=== PATIENT | female | born 1950 | race Caucasian/White ===

== ENCOUNTER 2017-01-08 14:39 | Inpatient (IN) | payer MEDICARE, OTHER ==
[~2017-01-08] VITALS: Ht 162.6 cm; Wt 95.3 kg
--- NOTE | 2017-01-08 14:45 | NUR ---
PATIENT BIB EMT FROM [facility] D/T ABDOMINAL PAIN AND DISTENTION. PATIENT IS A/OX 2, BREATHING EVEN AND UNLABORED. NO DISTRESS. VITALS STABLE. SAFETY AND COMFORT MEASURES IN PLACE. AWAITING MD ORDERS.
[2017-01-08] MEDS ORDERED: CITA20TA11 PO (14:56)
[2017-01-08] MEDS ORDERED: MAGN400O6 PO (14:56)
[2017-01-08] MEDS ORDERED: NA P133E RC (14:56)
[2017-01-08] MEDS ORDERED: BISA10SU8 RC (14:56)
[2017-01-08] MEDS ORDERED: TRAZ-144 PO (14:56)
[2017-01-08] MEDS ORDERED: ACET-868 PO (14:56)
[2017-01-08] MEDS ORDERED: THIA100T13 PO (14:56)
[2017-01-08] MEDS ORDERED: HYDR-3026 PO (14:56)
[2017-01-08] MEDS ORDERED: LACT10SO7 PO (14:56)
[2017-01-08] MEDS ORDERED: HYDR-552 PO (14:56)
[2017-01-08] MEDS ORDERED: SIME80TA15 PO (14:56)
[2017-01-08] MEDS ORDERED: NYST60PO TP (14:58)
[2017-01-08] MEDS ORDERED: MORPHINE SULFATE INJ 4 MG/ML DISP.SYRIN ONE (15:09)
[2017-01-08] MEDS ORDERED: ONDANSETRON HCL/PF 4 MG/2 ML VIAL ONE (15:09)
--- NOTE | 2017-01-08 15:25 | NUR ---
NEW IV STARTED ON LFA, 20 G. BLOOD DRAWN AND SENT TO LAB.
[2017-01-08] MEDS ORDERED: ONDANSETRON HCL/PF 4 MG/2 ML VIAL IVP ONE (15:30)
[2017-01-08] MEDS ORDERED: IV NS 0.9% 500 ML BAG IV ONE (15:30)
[2017-01-08] MEDS ORDERED: MORPHINE SULFATE INJ 2 MG/ML DISP.SYRIN IV ONE (15:30)
[2017-01-08 15:32] LABS: BASOPHILS % (AUTO) 3.5 % (0.0-2.0); EOSINOPHILS # (AUTO) 0.3 /CMM (0.0-0.7); EOSINOPHILS % (AUTO) 1.2 % (0.0-6.0); HEMATOCRIT 40 % (33-45); HEMOGLOBIN 13.6 g/dL (11.5-14.8); LYMPHOCYTES # (AUTO) 1.2 /CMM (0.8-4.8); LYMPHOCYTES % (AUTO) 4.4 % (20.0-44.0); MEAN CORPUSCULAR HEMOGLOBIN 34 PG (26.0-33.0); MEAN CORPUSCULAR HGB CONC 34 g/dl (31.0-36.0); MEAN CORPUSCULAR VOLUME 101 fL (82-100); MONOCYTES # (AUTO) 1.2 /CMM (0.1-1.30); MONOCYTES % (AUTO) 4.5 % (2.0-12.0); NEUTROPHILS % (AUTO) 86.4 % (43.0-81.0); PLATELET COUNT (AUTO) 295 /CMM (150-450); RDW COEFFICIENT OF VARIATION 15.1 (11.5-15.0); WHITE BLOOD COUNT (AUTO) 27.7 K/uL (4.3-11.0)
--- NOTE | 2017-01-08 15:35 | NUR ---
PATIENT TAKEN TO CT VIA STRETCHER.
[2017-01-08 15:40] LABS: CALCIUM, SERUM 8.6 mg/dL (8.5-10.1); CARBON DIOXIDE 22 mmol/L (21-32); CHLORIDE 93 mmol/L (98-107); CREATININE 1.4 mg/dL (0.6-1.3); GLUCOSE 105 mg/dL (74-106); POTASSIUM 5.3 mmol/L (3.5-5.1); SODIUM SERUM 123 mmol/L (136-145); UREA NITROGEN, BLOOD 45 mg/dL (7-18)
[2017-01-08 15:42] LABS: INR 1.49 (0.87-1.13); PROTHROMBIN TIME 15.8 SECS (9.5-12.7)
[2017-01-08 15:45] LABS: ALANINE AMINOTRANSFERASE 32 U/L (12-78); ALBUMIN 2.2 g/dL (3.4-5.0); ALKALINE PHOSPHATASE 501 U/L (46-116); ASPARTATE AMINOTRANSFERASE 78 U/L (15-37); BILIRUBIN,DIRECT 1.9 mg/dL (0.0-0.2); LIPASE 133 U/L (73-393); TOTAL PROTEIN, SERUM 6.6 g/dL (6.4-8.2)
--- NOTE | 2017-01-08 15:45 | NUR ---
PATIENT BACK FROM CT.
--- NOTE | 2017-01-08 15:54 | NUR ---
URINE OBTAINED CALLED LAB FOR PICKUP
[2017-01-08 15:56] LABS: BAND % (MANUAL) 2 % (0.0-5.0); LYMPHOCYTES % (MANUAL) 8 % (16-48); MONOCYTES % (MANUAL) 9 % (0-11.0); NEUTROPHILS % (MANUAL) 81 (42-76)
[2017-01-08 16:00] LABS: SERUM AMMONIA < 10 umol/L (11-32)
[2017-01-08 16:04] LABS: APPEARANCE,URINE Clear (CLEAR); BILIRUBIN,URINE SMALL (NEGATIVE); BLOOD, URINE Negative Ery/uL (NEGATIVE); COLOR,URINE Dark (YELLOW); KETONES,URINE Negative (NEGATIVE); LEUKOCYTE ESTERASE ,URINE Negative (NEGATIVE); NITRITE, URINE Negative (NEGATIVE); PH,URINE 5.5 (5.0-8.0); PROTEIN,URINE Trace mg/dl (NEGATIVE); UGLUCOSE Negative (NEGATIVE); UROBILINOGEN,URINE 0.2 EU/dL (0.2)
[2017-01-08] MEDS ORDERED: CEFTRIAXONE 1GM BAG (ER ONLY) 50 ML IV ONE ×2 (16:28→16:30)
[2017-01-08 16:42] LABS: BACTERIA,URINE Moderate /HPF (None Seen); RBC,URINE 0-2 /HPF (0-2); SQUAMOUS EPITHELIAL CELL,UR Few /HPF (None Seen); WBC,URINE 0-2 /HPF (0-3)
--- NOTE | 2017-01-08 17:05 | NUR ---
REPORT GIVEN TO JOCELYN DORAN FOR ADMISSION.
--- NOTE | 2017-01-08 17:25 | NUR ---
PAGED DR MENDOZA FOR ADMISSION
[2017-01-08] MEDS ORDERED: ALBUMIN 25% 12.5 GM/50 ML BOTTLE IV ONE (17:30)
[2017-01-08] MEDS ORDERED: ALBUMIN 25% 100 ML IV ONE ×2 (17:34→22:22)
--- NOTE | 2017-01-08 17:43 | NUR ---
REPAGED DR MENDOZA
--- NOTE | 2017-01-08 18:05 | NUR ---
US TECH AT BEDSIDE FOR PARACENTESIS.
--- NOTE | 2017-01-08 18:08 | NUR ---
PARACENTESIS PROCEDURE EXPLAINED TO PATIENT. PATIENT HAS AGREED TO PROCEDURE. CONSENT RECEIVED FOR ULTRASOUND GUIDED PARACENTESIS AND PLACED IN CHART.
--- NOTE | 2017-01-08 18:20 | NUR ---
RADIOLOGIST AT BEDSIDE, PARACENTESIS STARTED.
--- NOTE | 2017-01-08 18:27 | NUR ---
REPAGED DR MENDOZA
--- NOTE | 2017-01-08 18:48 | NUR ---
REPAGED DR MENDOZA
[2017-01-08] MEDS ORDERED: MORPHINE SULFATE INJ 2 MG/ML DISP.SYRIN ONE (19:13)
[2017-01-08] MEDS ORDERED: MORPHINE SULFATE INJ 2 MG/ML DISP.SYRIN IV PRN (19:30)
--- NOTE | 2017-01-08 19:36 | NUR ---
RECIEVED REPORT FROM DAYSNVFT ESPINOZA BUSTAMANTE. FOUND Pt AWAKE IN BED. CURRENTLY GETTING PARACENTESIS. REPORT ALREADY GIVEN TO NOAH RN FOR ADMISSION ONCE PARACENTESIS IS DONE IN ER. NO S/S OF ACUTE DISTRESS OR SOB NOTED.
--- NOTE | 2017-01-08 19:36 | NUR ---
RECIEVED REPORT FROM DAYSSCFT ESPINOZA BUSTAMANTE. FOUND Pt AWAKE IN BED. CURRENTLY GETTING PARACENTESIS. REPORT ALREADY GIVEN TO NOAH RN FOR ADMISSION ONCE PARACENTESIS IS DONE IN ER. NO S/S OF ACUTE DISTRESS OR SOB NOTED.
--- NOTE | 2017-01-08 19:40 | NUR ---
PARACENTESIS DONE. 10 BOTTLES TOTAL COLLETED. LATEST VS: BP 108/71. HR 88. R 18. T 98.5F. O2 95% ON NC 5L. NO S/S OF ACUTE DISTRESS OR SEVERE SOB NOTED. Pt TRANSFERED TO NOAH FLOOR.
--- NOTE | 2017-01-08 19:50 | NUR ---
[facility]
--- NOTE | 2017-01-08 19:50 | NUR ---
RN NOTES: RECEIVED NEW ADMISSION FROM ER,FEMALE,A/OX2 DEMENTED,LOOKS VERY SLEEPY AND UNABLE TO OBTAIN HISTORY,CAME IN WITH C/C OF ABDOMINAL PAIN AND DISTENTION,DX;SEPSIS, ON 02 VIA NC sPO2-96%, ON POWERS CATH DRAINING INTO YELLOWISH URINE AT 300 CC LEVEL,ORIENTED TO UNIT AND STAFF, BODY ASSESSMENT DONE:NEEDLE PRICK IN RLQ S/P PARACENTESIS ,OBTAINED 9,900CC(CLEAR YELLOW FLUID), REDNESS ON RIGHT AND LEFT INGUINAL AREA,NON BLANCHABLE REDNESS ON THE SACROCOCCYX AREA,RECEIVED N/S, MORPHINE,ZOFRAN AND ROCEPHINE 1 GRAM FROM ER.FALL, SAFETY AND ASPIRATION PRECAUTION OBSERVED.BED LOW AND LOCKED,CALL LIGHT WITHIN EASY REACH.
[2017-01-08 20:00] VITALS: BP 104/63
[2017-01-08] MEDS ORDERED: ALBUMIN 25% 50 ML IV ONE ×2 (22:26→22:29)
--- NOTE | 2017-01-08 22:30 | NUR ---
RN NOTES: CALLED, GAVE T.O TO CONTINUE SAME MEDICATION FROM HOME,NOTIFIED ABOUT LATEST V/S AND BLOOD RESULTS,WITH ORDER TO DO BLOOD TEST TOMORROW,CONTINUE ROCEPHINE,ALBUMIN 25% 100 CC Q8H X 3 DOSES, GIVEN [id number].WILL CONTINUE TO MONITOR AND OBSERVE FOR GISEL.CALL LIGHT WITHIN EASY REACH.
[2017-01-08] MEDS: ALBUMIN 25% 25 GM in PREMIX 1 EA IV SCH (22:36)
[2017-01-09 04:00] VITALS: BP 98/60
--- NOTE | 2017-01-09 04:33 | NUR ---
RN NOTES; ASLEEP IN THE NIGHT, ON CLOSE OBSERVATION.
[2017-01-09] MEDS: ALBUMIN 25% 25 GM in PREMIX 1 EA IV SCH (05:02)
--- NOTE | 2017-01-09 05:44 | NUR ---
RN NOTES: COMPLAINED OF SEVERE ABDOMINA PAIN 9/10 ON THE BADOMEN AREA, REQUEST FOR HER PAIN MEDICATION BP-105/60 VA-80, KEPT ON COMFORTABLE POSITION, CALLS AND NEEDS ATTENDED.
--- NOTE | 2017-01-09 07:42 | NUR ---
RN NOTES: PATIENT IS STILL HAVING SLIGHT PAIN, NON PHARMACOLOGICAL INTERVENTION RENDERED,DIVERTED TO WATCH TV, DIM LIGHT AND BACK RUB RENDERED,KEPT ON CLOSE WATCH,CALL LIGHT WITHIN EASY REACH.ENDORSED FOR CONTINUITY OF CARE.
[2017-01-09 07:53] LABS: BASOPHILS # (AUTO) 0.2 /CMM (0.0-0.2); EOSINOPHILS # (AUTO) 0.9 /CMM (0.0-0.7); EOSINOPHILS % (AUTO) 4.5 % (0.0-6.0); HEMATOCRIT 31 % (33-45); HEMOGLOBIN 10.5 g/dL (11.5-14.8); LYMPHOCYTES # (AUTO) 1.5 /CMM (0.8-4.8); LYMPHOCYTES % (AUTO) 7.6 % (20.0-44.0); MEAN CORPUSCULAR HEMOGLOBIN 35 PG (26.0-33.0); MEAN CORPUSCULAR HGB CONC 34 g/dl (31.0-36.0); MEAN CORPUSCULAR VOLUME 103 fL (82-100); MONOCYTES # (AUTO) 1.2 /CMM (0.1-1.30); MONOCYTES % (AUTO) 6.3 % (2.0-12.0); NEUTROPHILS # (AUTO) 15.6 /CMM (1.8-8.9); NEUTROPHILS % (AUTO) 80.6 % (43.0-81.0); PLATELET COUNT (AUTO) 164 /CMM (150-450); RDW COEFFICIENT OF VARIATION 16.1 (11.5-15.0); RED BLOOD CELL COUNT(AUTO) 3.01 MIL/uL (4.0-5.2); WHITE BLOOD COUNT (AUTO) 19.4 K/uL (4.3-11.0)
--- NOTE | 2017-01-09 08:00 | NUR ---
RN MS NOTES: RECEIVED PATIENT IN BED . AWAKE ALERT WITH CONFUSION , ON 02 VIA 3L NC sPO2-94%, NO SOB NOTED ON POWERS CATH DRAINING INTO YELLOWISH COLOR URINE, , ON SAFETY AND ASPIRATION PRECAUTION OBSERVED.BED LOW AND LOCKED,CALL LIGHT WITHIN EASY REACH., TOOK PO MEDS WELL , CALL LIGHT WITHIN REACH , WILL CONT TO MONITOR CLOSELY
[2017-01-09 08:04] LABS: CALCIUM, SERUM 8.1 mg/dL (8.5-10.1); CREATININE 1.1 mg/dL (0.6-1.3); MAGNESIUM 2.2 mg/dL (1.8-2.4); PHOSPHORUS 4.1 mg/dL (2.5-4.9)
[2017-01-09 09:00] VITALS: BP 98/57
[2017-01-09] MEDS ORDERED: SIMETHICONE 80 MG TAB.CHEW PO PRN (09:00)
[2017-01-09] MEDS ORDERED: BISACODYL SUPP (10 MG) 10 MG/SUPP.RECT SUPP.RECT RC PRN (09:00)
[2017-01-09] MEDS ORDERED: MAGNESIUM HYDROXIDE 30 ML UDC PO PRN (09:00)
[2017-01-09] MEDS ORDERED: TRAZODONE 50 MG TABLET PO PRN (09:00)
[2017-01-09] MEDS ORDERED: NA PHOS,M-B/NA PHOS,DI-BA 1 EA ENEMA RC PRN (09:00)
[2017-01-09] MEDS ORDERED: ACETAMINOPHEN 325 MG TABLET PO PRN (09:00)
[2017-01-09] MEDS: CITALOPRAM HYDROBROMIDE 20 MG TABLET PO SCH (09:11)
[2017-01-09] MEDS: THIAMINE HCL 100 MG TABLET PO SCH (09:11)
[2017-01-09] MEDS ORDERED: hydrOXYzine PAMOATE 25 MG CAPSULE PO PRN (09:30)
[2017-01-09] MEDS ORDERED: LACTULOSE 10 G/15 ML UDC (PYXIS) PO PRN (09:30)
[2017-01-09 09:33] LABS: EOSINOPHILS % (MANUAL) 5 % (0-4); LYMPHOCYTES % (MANUAL) 1 % (16-48); MONOCYTES % (MANUAL) 6 % (0-11.0); NEUTROPHILS % (MANUAL) 88 (42-76)
--- NOTE | 2017-01-09 10:36 | NUR ---
ms rn note spoke with dr romero notifyed that na 127, k 5.0 ok to start puree diet , no anticoagulates at this time , will f\u
[2017-01-09] MEDS: NYSTATIN TOP POWDER 15 GM BOTTLE TP SCH (10:49)
[2017-01-09 11:44] LABS: CREATININE, URINE 97.8 MG/DL (30.0-125.0); URINE TOTAL PROTEIN 83.1 mg/dL (0-11.9)
--- NOTE | 2017-01-09 12:36 | NUR ---
MS RN NOTE AT RISK FOR ASPIRATION, DR SANTILLAN AWARE OK TO ORDER SWALLOW EVAL , ORDER CARRIED OUT
[2017-01-09] MEDS ORDERED: ALBUMIN 25% 25 GM in PREMIX 1 EA IV SCH (13:00)
--- NOTE | 2017-01-09 15:00 | NUR ---
TECHNICIAN AUTOMATED EQUIPMENT NOTE ALL NEEDS ATTENDED ,NOT IN ACUTE DISTRESS
[2017-01-09 16:00] VITALS: BP 97/61
[2017-01-09] MEDS: CEFTRIAXONE 1 G in IV D5W 50 ML IV SCH (16:27)
--- NOTE | 2017-01-09 18:13 | NUR ---
MS RN NOTE HAVING DINNER , FED BY STUFF , ALL NEEDS ATTENDED ,NOT IN ACUTE DISTRESS, CALL LIGHT WITH REACH
--- NOTE | 2017-01-09 19:26 | NUR ---
RN NOTES AWAKE IN BED, ALERT AND RESPONSIVE WITH EPISODE OF CONFUSION, VERBALLY ABLE TO COMMUNICATE NEEDS. ON 02 @3L TOLERATING WELL. NO RESPIRATORY DISTRESS OR SHORTNESS OF BREATH. BREATHING EVEN AND UNLABORED. NO COMPLAINT OF PAIN OF THIS TIME. POWERS CATHETER IN PLACE DRAINING CLEAR YELLOW WITH NO FOUL ODOR URINE. WILL CONTINUE TO MONITOR.
[2017-01-09 20:00] VITALS: BP 94/46
[2017-01-10 04:00] VITALS: BP 93/58
--- NOTE | 2017-01-10 06:55 | NUR ---
RN CLOSING NOTES AWAKE, ALERT AND ORIENTED X 2 WITH EPISODES OF CONFUSION. NO DISTRESS NOTED, NO COMPLAINT OF PAIN OR DISCOMFORT. VITAL SIGNS WNL. WILL ENDORSE TO AM SHIFT FOR CONTINUITY OF CARE
[2017-01-10] MEDS: CITALOPRAM HYDROBROMIDE 20 MG TABLET PO SCH (09:09)
[2017-01-10] MEDS: THIAMINE HCL 100 MG TABLET PO SCH (09:09)
[2017-01-10] MEDS: NYSTATIN TOP POWDER 15 GM BOTTLE TP SCH (09:13)
[2017-01-10 10:00] VITALS: BP 138/70
[2017-01-10 12:00] VITALS: BP 138/70
--- NOTE | 2017-01-10 13:59 | NUR ---
WOUND CARE CONSULT PATIENT SEEN AND SKIN ASSESSED. PATIENT NOTED TO HAVE AN AREA OF NON BLANCHING REDNESS ON THE SACRUM, POA. OF NOW THE KIN IS INTACT. RECOMMEND APPLY ZGUARD DAILY AND PRN SOILING AND COVER WITH MEPILEX TO PROTECT. REDNESS ON PERINEAL AREA POA, CLEANSE WITH SOAP AND WATER, PAT DRY, APPLY ZGUARD DAILY AND PRN SOILING. PATIENT IS CURRENTLY ON A STRIKER GEL MATTRESS, RECOMMEND ISOFLEX LOW AIR LOSS AND FREQUENT TURNING SCHEDULE. ASKED RN, BESSIE, TO PLACE A WOUND CARE PLAN FOR THE PATIENT. ALL ORDERS AND RECOMMENDATIONS PLACED IN CHART AND DISCUSSED WITH NURSING AT THE BEDSIDE. WILL CONTINUE TO FOLLOW PATIENT NEEDED. Addendum: 01/10/17 at 1403 by IVÁN ARANDA RN Amended: Links added.
[2017-01-10] MEDS: Z GUARD REMEDY 2 OZ OINT TP SCH (14:33)
[2017-01-10] MEDS: CEFTRIAXONE 1 G in IV D5W 50 ML IV SCH (16:16)
[2017-01-10 20:00] VITALS: BP 91/53
--- NOTE | 2017-01-10 20:00 | NUR ---
RN NOTES RECEIVED PATIENT AWAKE IN BED, COMPLAINED OF ABDOMINAL PAIN, NORCO 5/325 1 TABLET GIVEN, WITH RELIEF. NO RESPIRATORY DISTRESS, ON 3 LPM 02 VIA NASAL CANNULA TOLERATING WELL. ALERT AND RESPONSIVE WITH CONFUSION. FC IN PLACE DRAINING CLEAR YELLOW WITH NO FOUL ODOR URINE. WILL CONTINUE TO MONITOR.
[2017-01-10] MEDS: HYDROCODONE/APAP 5/325MG 1 EACH TABLET PO PRN (20:40)
[2017-01-11 04:00] VITALS: BP 98/61
--- NOTE | 2017-01-11 06:49 | NUR ---
RN CLOSING NOTES COMFORTABLY SLEEPING IN BED. NO RESPIRATORY DISTRESS OR SHORTNESS OF BREATH. VITAL SIGNS WNL. WILL ENDORSE TO AM SHIFT FOR CONTINUITY OF CARE.
[2017-01-11 06:59] LABS: BASOPHILS # (AUTO) 0.1 /CMM (0.0-0.2); BASOPHILS % (AUTO) 0.6 % (0.0-2.0); HEMATOCRIT 34 % (33-45); HEMOGLOBIN 11.5 g/dL (11.5-14.8); LYMPHOCYTES # (AUTO) 1.4 /CMM (0.8-4.8); LYMPHOCYTES % (AUTO) 7.2 % (20.0-44.0); MEAN CORPUSCULAR HEMOGLOBIN 35 PG (26.0-33.0); MEAN CORPUSCULAR HGB CONC 34 g/dl (31.0-36.0); MEAN CORPUSCULAR VOLUME 103 fL (82-100); MONOCYTES # (AUTO) 0.2 /CMM (0.1-1.30); MONOCYTES % (AUTO) 0.9 % (2.0-12.0); NEUTROPHILS # (AUTO) 17.2 /CMM (1.8-8.9); NEUTROPHILS % (AUTO) 86.3 % (43.0-81.0); PLATELET COUNT (AUTO) 149 /CMM (150-450); RDW COEFFICIENT OF VARIATION 15.7 (11.5-15.0); RED BLOOD CELL COUNT(AUTO) 3.33 MIL/uL (4.0-5.2)
[2017-01-11 07:32] LABS: CALCIUM, SERUM 7.9 mg/dL (8.5-10.1); CREATININE 1.1 mg/dL (0.6-1.3); MAGNESIUM 2.2 mg/dL (1.8-2.4); POTASSIUM 4.9 mmol/L (3.5-5.1)
[2017-01-11 08:00] VITALS: BP 105/61
[2017-01-11] MEDS: CITALOPRAM HYDROBROMIDE 20 MG TABLET PO SCH (08:13)
[2017-01-11] MEDS: THIAMINE HCL 100 MG TABLET PO SCH (08:13)
[2017-01-11] MEDS: Z GUARD REMEDY 2 OZ OINT TP SCH (08:16)
[2017-01-11] MEDS: NYSTATIN TOP POWDER 15 GM BOTTLE TP SCH (09:00)
--- NOTE | 2017-01-11 10:51 | NUR ---
RN MS INITIAL NOTES RECEIVED PATIENT AWAKE IN BED, NO RESPIRATORY DISTRESS, ON 3 LPM 02 VIA NASAL CANNULA TOLERATING WELL. ALERT AND RESPONSIVE WITH CONFUSION. FC IN PLACE DRAINING CLEAR YELLOW WITH NO FOUL ODOR URINE. WILL CONTINUE TO MONITOR THROUGHOUT THE DAY CALL LIGHT WITHIN REACH BED ALARM ON .
[2017-01-11 16:00] VITALS: BP 92/57
[2017-01-11] MEDS: CEFTRIAXONE 1 G in IV D5W 50 ML IV SCH (17:21)
[2017-01-11] MEDS: HYDROCODONE/APAP 5/325MG 1 EACH TABLET PO PRN (17:34)
--- NOTE | 2017-01-11 18:11 | NUR ---
RN CLOSING NOTES COMFORTABLY IN BED ALERT/ ORIENTED X 1-2 . NO RESPIRATORY DISTRESS OR SHORTNESS OF BREATH. VITAL SIGNS WNL. PAIN MEDICATION GIVEN PER PATIENT REQUEST. ALL NEEDS CARRIED OUT RN WILL ENDORSE TO PM SHIFT FOR CONTINUITY OF CARE.
--- NOTE | 2017-01-11 19:30 | NUR ---
RN INITIAL NOTE RECEIVED PT IN NO ACUTE DISTRESS IN BED. PT IS A/O X 2 WITH PERIODS OF CONFUSION. PT IS ON O2 VIA NC @ 2LPM AND TOLERATING WELL WITH O2 SAT @ 96%. PT NOT C/O ANY SOB, DIFFICULTY BREATHING OR PAIN AT THIS TIME. PT HAS F/C THAT IS CLEAN DRY INTACT AND PATENT WITH DASH COLOR URINE DRAINING. PT HAS LFA 22G THAT IS CLEAN DRY INTACT AND PATENT WITH SALINE FLUSH. BED IN LOW LOCK POSITION WITH RIALS UP X 2. CALL LIGHT WITHIN REACH AND ALL SAFETY MEASURES ENSURED AND CARRIED OUT. WILL CONTINUE TO MONITOR FOR ANY CHANGES IN CONDITION DURING SHIFT.
[2017-01-11 20:00] VITALS: BP 92/59
[2017-01-12 04:00] VITALS: BP_SYST 92; BP_SYST 93; BP_DIAS 52; BP_DIAS 59
[2017-01-12 07:24] LABS: BASOPHILS # (AUTO) 0.1 /CMM (0.0-0.2); BASOPHILS % (AUTO) 0.5 % (0.0-2.0); EOSINOPHILS # (AUTO) 0.8 /CMM (0.0-0.7); EOSINOPHILS % (AUTO) 3.2 % (0.0-6.0); HEMATOCRIT 37 % (33-45); HEMOGLOBIN 12.4 g/dL (11.5-14.8); LYMPHOCYTES # (AUTO) 1.5 /CMM (0.8-4.8); LYMPHOCYTES % (AUTO) 6.1 % (20.0-44.0); MEAN CORPUSCULAR HEMOGLOBIN 35 PG (26.0-33.0); MEAN CORPUSCULAR HGB CONC 34 g/dl (31.0-36.0); MEAN CORPUSCULAR VOLUME 103 fL (82-100); MONOCYTES # (AUTO) 1.5 /CMM (0.1-1.30); MONOCYTES % (AUTO) 6.2 % (2.0-12.0); NEUTROPHILS # (AUTO) 20.7 /CMM (1.8-8.9); PLATELET COUNT (AUTO) 178 /CMM (150-450); RDW COEFFICIENT OF VARIATION 15.9 (11.5-15.0); RED BLOOD CELL COUNT(AUTO) 3.56 MIL/uL (4.0-5.2); WHITE BLOOD COUNT (AUTO) 24.7 K/uL (4.3-11.0)
[2017-01-12 08:00] VITALS: BP 89/50
--- NOTE | 2017-01-12 08:00 | NUR ---
RN MS INITIAL NOTES RECEIVED PATIENT AWAKE IN BED, NO RESPIRATORY DISTRESS, ON 3 LPM 02 VIA NASAL CANNULA TOLERATING WELL. ALERT AND RESPONSIVE NO CONFUSION. FC IN PLACE DRAINING CLEAR YELLOW WITH NO FOUL ODOR URINE. WILL CONTINUE TO MONITOR THROUGHOUT THE DAY CALL LIGHT WITHIN REACH BED ALARM ON .
[2017-01-12 08:07] LABS: CALCIUM, SERUM 8.1 mg/dL (8.5-10.1); CREATININE 1.2 mg/dL (0.6-1.3); MAGNESIUM 2.2 mg/dL (1.8-2.4); PHOSPHORUS 3.5 mg/dL (2.5-4.9); POTASSIUM 5.8 mmol/L (3.5-5.1)
[2017-01-12] MEDS: NYSTATIN TOP POWDER 15 GM BOTTLE TP SCH (09:37)
[2017-01-12] MEDS: Z GUARD REMEDY 2 OZ OINT TP SCH (09:37)
[2017-01-12] MEDS: THIAMINE HCL 100 MG TABLET PO SCH (09:38)
[2017-01-12] MEDS: CITALOPRAM HYDROBROMIDE 20 MG TABLET PO SCH (09:38)
[2017-01-12] MEDS: AMOX/CLAVULANATE 250 MG TABLET PO SCH ×2 (10:06→20:50)
[2017-01-12 10:16] LABS: EOSINOPHILS % (MANUAL) 4 % (0-4); LYMPHOCYTES % (MANUAL) 9 % (16-48); MONOCYTES % (MANUAL) 4 % (0-11.0); NEUTROPHILS % (MANUAL) 83 (42-76)
--- NOTE | 2017-01-12 12:46 | NUR ---
RN Note RN CONTACTED MD IN REGARDS TO THE PATIENT HAVING X2 VOMITING EPISODES. POSSIBLE DUE TO NEW MEDICATION AMOXICILLIN, RN CALLING FOR NAUSEA MEDICATION RN AWAITING RETURN CALL FROM MD MENDOZA ATTENDING DIGITAL COMMENTATOR JACQUE
[2017-01-12 16:00] VITALS: BP 94/54
--- NOTE | 2017-01-12 18:23 | NUR ---
RN NOTE RN EXPERIENCED ISSUES WITH HANDHELD SCANNER , CHARGE NURSE SOLOMON NOTIFIED 5 RIGHT OF MEDICATION COMPLETED AND VERIFIED . ALL NEED MET
--- NOTE | 2017-01-12 19:03 | NUR ---
RN CLOSING NOTES COMFORTABLY IN BED ALERT/ ORIENTED X 2 . NO RESPIRATORY DISTRESS OR SHORTNESS OF BREATH. VITAL SIGNS WNL. PATIENT COMPLAINED OF NAUSEA . VOMITING X2 PAIN MEDICATION GIVEN PER PATIENT REQUEST. ALL NEEDS CARRIED OUT RN WILL ENDORSE TO PM SHIFT FOR CONTINUITY OF CARE.
--- NOTE | 2017-01-12 19:30 | NUR ---
MS RN INITIAL NOTE PT RECEIVED IN BED STILL EATING HER DINNER. A/O X2 WITH EPISODES OF CONFUSION BUT ABLE TO MAKE SOME NEEDS KNOWN. NO C/O PAIN OR DISCOMFORT. NO C/O NAUSEA OR VOMIT AT THIS TIME. BREATHING IS REGULAR, EVEN AND UNLABORED. ON 3L OF O2 VIA NASAL CANNULA AND SATURATING AT 94%. IV SITE L FOREARM #22 SALINE LOCK CLEAN, DRY, FLUSHING WELL AND INTACT. POWERS CATHETER IN PLACE AND DRAINING BY GRAVITY. ALL SAFETY MEASURES IN PLACE. CALL LIGHT WITHIN EASY REACH AT ALL TIMES. WILL CONTINUE TO MONITOR.
[2017-01-12 20:00] VITALS: BP 92/57
[2017-01-12] MEDS ORDERED: CIPROFLOXACIN IV RTU 400 MG in PREMIX 1 EA IV SCH (21:30)
[2017-01-12] MEDS ORDERED: METRONIDAZOLE 500MG/ NS 100ML 100 ML IV ONE (22:24)
[2017-01-12] MEDS: METRONIDAZOLE 500MG/ NS 100ML 500 MG in PREMIX 1 EA IV SCH (22:46)
[2017-01-12] MEDS ORDERED: CIPROFLOXACIN IV RTU 200 ML IV ONE (23:31)
[2017-01-13 04:00] VITALS: BP 108/73
[2017-01-13] MEDS ORDERED: METRONIDAZOLE 500MG/ NS 100ML 100 ML IV ONE (04:31)
[2017-01-13] MEDS: METRONIDAZOLE 500MG/ NS 100ML 500 MG in PREMIX 1 EA IV SCH ×3 (06:09→21:51)
--- NOTE | 2017-01-13 06:53 | NUR ---
MS RN CLOSING NOTE PT REMAINED STABLE DURING SHIFT. VOMIT/ NAUSEA X1. ALL NEEDS ATTENDED TO PROMPTLY. ALL SAFETY MEASURES IN PLACE. POWERS CATHETER IN PLACE. REPOSITIONED Q2H. STARTED NEW IV L FOREARM #22G SL CLEAN AND INTACT. NEW ORDERS BY LULU LOCKE TO D/C AMOXICILLIN D/T NAUSEA AND VOMIT. TO START IV FLAGYL AND IV CIPRO WHICH WERE BOTH WELL TOLERATED. ORDERS NOTED AND CARRIED OUT. CALL LIGHT WITHIN REACH. WILL ENDORSE TO NEXT SHIFT FOR GISEL.
[2017-01-13 07:17] LABS: BASOPHILS # (AUTO) 0.9 /CMM (0.0-0.2); BASOPHILS % (AUTO) 3.7 % (0.0-2.0); EOSINOPHILS # (AUTO) 0.2 /CMM (0.0-0.7); EOSINOPHILS % (AUTO) 0.8 % (0.0-6.0); HEMATOCRIT 36 % (33-45); HEMOGLOBIN 12.2 g/dL (11.5-14.8); LYMPHOCYTES # (AUTO) 0.7 /CMM (0.8-4.8); LYMPHOCYTES % (AUTO) 2.9 % (20.0-44.0); MEAN CORPUSCULAR HEMOGLOBIN 35 PG (26.0-33.0); MEAN CORPUSCULAR HGB CONC 34 g/dl (31.0-36.0); MEAN CORPUSCULAR VOLUME 103 fL (82-100); MONOCYTES # (AUTO) 1.3 /CMM (0.1-1.30); MONOCYTES % (AUTO) 5.2 % (2.0-12.0); NEUTROPHILS # (AUTO) 21.7 /CMM (1.8-8.9); NEUTROPHILS % (AUTO) 87.4 % (43.0-81.0); PLATELET COUNT (AUTO) 168 /CMM (150-450); RDW COEFFICIENT OF VARIATION 15.8 (11.5-15.0); RED BLOOD CELL COUNT(AUTO) 3.52 MIL/uL (4.0-5.2); WHITE BLOOD COUNT (AUTO) 24.8 K/uL (4.3-11.0)
[2017-01-13 07:35] LABS: CREATININE 1.2 mg/dL (0.6-1.3); MAGNESIUM 2.2 mg/dL (1.8-2.4); POTASSIUM 5.7 mmol/L (3.5-5.1)
[2017-01-13 08:00] VITALS: BP 103/65
[2017-01-13] MEDS: CITALOPRAM HYDROBROMIDE 20 MG TABLET PO SCH (08:03)
[2017-01-13] MEDS: THIAMINE HCL 100 MG TABLET PO SCH (08:03)
[2017-01-13] MEDS: Z GUARD REMEDY 2 OZ OINT TP SCH (08:07)
[2017-01-13 08:46] LABS: LYMPHOCYTES % (MANUAL) 4 % (16-48); MONOCYTES % (MANUAL) 5 % (0-11.0); NEUTROPHILS % (MANUAL) 91 (42-76)
[2017-01-13] MEDS: RIFAMPIN 600 MG in IV NS 0.9% 100 ML IV SCH (11:05)
[2017-01-13] MEDS: NYSTATIN TOP POWDER 15 GM BOTTLE TP SCH (12:58)
--- NOTE | 2017-01-13 15:05 | NUR ---
RN NOTE SPOKE TO DR. SANTILLAN- INFORMED MD PATIENT CONSUMED <25% OF MEALS AND THAT URINE OUTPUT IS 100ML SINCE 7AM. MD GAVE VERBAL ORDER FOR BOOST SUPPLEMENT DAILY.
[2017-01-13 16:00] VITALS: BP 104/66
[2017-01-13] MEDS ORDERED: SODIUM POLYSTYRENE SULFONATE 15 G/60 ML BOTTLE PO ONE (17:30)
--- NOTE | 2017-01-13 19:30 | NUR ---
MS RN INITIAL NOTE RECEIVED PT IN BED RESTING. A/O X1 WITH EPISODES OF CONFUSION, BUT ABLE TO MAKE SOME NEEDS KNOWN. ON 3L OF O2 AND SATURATING WELL AT 94%. NO SOB NOTED. BREATHING REGULAR, EVEN AND UNLABORED. IV R FOREARM CLEAN, PATENT AND FLUSHING WELL. POWERS CATHETER IN PLACE AND DRAINING DASH/ BROWN URINE. NO C/O PAIN OR DISCOMFORT AT THIS TIME. CALL LIGHT WITHIN REACH. WILL CONTINUE TO MONITOR FOR CHANGES.
[2017-01-13 20:00] VITALS: BP 107/66
[2017-01-13] MEDS: CIPROFLOXACIN IV RTU 400 MG in PREMIX 1 EA IV SCH (22:42)
--- NOTE | 2017-01-14 02:30 | NUR ---
MS RN NOTE COLLECTED URINE AND STOOL SPECIMEN. CALLED LAB FOR CREDIT DIRECTOR.
[2017-01-14 02:56] LABS: APPEARANCE,URINE CLEAR (CLEAR); BILIRUBIN,URINE 2+ (NEGATIVE); BLOOD, URINE 2+ Ery/uL (NEGATIVE); COLOR,URINE ORANGE (YELLOW); KETONES,URINE TRACE (NEGATIVE); LEUKOCYTE ESTERASE ,URINE TRACE (NEGATIVE); NITRITE, URINE POSITIVE (NEGATIVE); PH,URINE 5.5 (5.0-8.0); PROTEIN,URINE 1+ mg/dl (NEGATIVE); UGLUCOSE NEGATIVE (NEGATIVE)
[2017-01-14 03:06] LABS: BACTERIA,URINE None seen /HPF (None Seen); RBC,URINE 21-50 /HPF (0-2); SQUAMOUS EPITHELIAL CELL,UR Rare /HPF (None Seen)
[2017-01-14 03:07] LABS: MUCUS,URINE Few /LPF (None Seen)
[2017-01-14] MEDS: METRONIDAZOLE 500MG/ NS 100ML 500 MG in PREMIX 1 EA IV SCH ×3 (04:30→20:28)
--- NOTE | 2017-01-14 07:29 | NUR ---
MS RN CLOSING NOTE NO ACUTE DISTRESS NOTED. SATURATING WELL ON 3L OF O2 VIA NASAL CANNULA. ALL NEEDS ATTENDED TO PROMPTLY. ALL SAFETY MEASURES IN PLACE. KEPT CLEAN AND DRY. CALL LIGHT WITHIN EASY REACH. WILL ENDORSE TO NEXT SHIFT FOR GISEL.
[2017-01-14 08:00] VITALS: BP 103/70
[2017-01-14] MEDS: THIAMINE HCL 100 MG TABLET PO SCH (08:24)
[2017-01-14] MEDS: CITALOPRAM HYDROBROMIDE 20 MG TABLET PO SCH (08:24)
[2017-01-14] MEDS: BOOST PLUS FOOD-CHOCLATE 237 ML BOX PO SCH (08:24)
[2017-01-14] MEDS: CIPROFLOXACIN IV RTU 400 MG in PREMIX 1 EA IV SCH ×2 (08:24→21:28)
[2017-01-14] MEDS: Z GUARD REMEDY 2 OZ OINT TP SCH (08:26)
[2017-01-14] MEDS: NYSTATIN TOP POWDER 15 GM BOTTLE TP SCH (08:26)
[2017-01-14] MEDS: RIFAMPIN 600 MG in IV NS 0.9% 100 ML IV SCH (11:12)
[2017-01-14 11:16] LABS: EOSINOPHILS # (AUTO) 0.2 /CMM (0.0-0.7); EOSINOPHILS % (AUTO) 0.9 % (0.0-6.0); HEMATOCRIT 32 % (33-45); HEMOGLOBIN 10.8 g/dL (11.5-14.8); LYMPHOCYTES # (AUTO) 0.8 /CMM (0.8-4.8); LYMPHOCYTES % (AUTO) 3.5 % (20.0-44.0); MEAN CORPUSCULAR HEMOGLOBIN 34 PG (26.0-33.0); MEAN CORPUSCULAR HGB CONC 34 g/dl (31.0-36.0); MEAN CORPUSCULAR VOLUME 102 fL (82-100); MONOCYTES # (AUTO) 1.8 /CMM (0.1-1.30); MONOCYTES % (AUTO) 7.9 % (2.0-12.0); NEUTROPHILS # (AUTO) 19.9 /CMM (1.8-8.9); NEUTROPHILS % (AUTO) 87.7 % (43.0-81.0); PLATELET COUNT (AUTO) 159 /CMM (150-450); RDW COEFFICIENT OF VARIATION 15.9 (11.5-15.0); RED BLOOD CELL COUNT(AUTO) 3.14 MIL/uL (4.0-5.2); WHITE BLOOD COUNT (AUTO) 22.7 K/uL (4.3-11.0)
[2017-01-14 11:28] LABS: CALCIUM, SERUM 7.8 mg/dL (8.5-10.1); CREATININE 1.2 mg/dL (0.6-1.3); PHOSPHORUS 2.6 mg/dL (2.5-4.9); POTASSIUM 3.6 mmol/L (3.5-5.1)
[2017-01-14 11:37] LABS: BAND % (MANUAL) 3 % (0.0-5.0); EOSINOPHILS % (MANUAL) 1 % (0-4); LYMPHOCYTES % (MANUAL) 8 % (16-48); MONOCYTES % (MANUAL) 7 % (0-11.0); NEUTROPHILS % (MANUAL) 81 (42-76)
[2017-01-14 16:00] VITALS: BP 101/63
--- NOTE | 2017-01-14 16:19 | NUR ---
RT UNABLE TO OBTAIN SPUTUM SAMPLE AT THIS TIME. PT IS UNABLE TO SPONTANEOUSLY PRODUCE SPUTUM SAMPLE. SAUD USED TO TRY AND INDUCE SPUTUM BUT WAS UNABLE TO OBTAIN. ESPINOZA MURCIA AWARE AND NOTIFIED.
--- NOTE | 2017-01-14 19:30 | NUR ---
MS RN NOTE RECEIVED PATIENT FROM DAY SHIFT, PATIENT IS ALERT AND ORIENTEDX1, CONFUSED AT TIMES, POWERS CATH NOTED WITH BRIGHT RED URINE DUE TO RIFAMPIN. NO S/S OF RESPIRATORY DISTRESS OR PAIN AT THIS TIME. SRX2, BED IN LOW POSITION, CALL LIGHT WITHIN REACH, WILL CONTINUE TO MONITOR PATIENT.
[2017-01-14 20:00] VITALS: BP_SYST 150; BP_SYST 95; BP_DIAS 54; BP_DIAS 70
[2017-01-15] MEDS: METRONIDAZOLE 500MG/ NS 100ML 500 MG in PREMIX 1 EA IV SCH ×3 (04:30→21:41)
[2017-01-15 06:46] LABS: EOSINOPHILS # (AUTO) 0.2 /CMM (0.0-0.7); EOSINOPHILS % (AUTO) 0.9 % (0.0-6.0); HEMATOCRIT 35 % (33-45); HEMOGLOBIN 11.9 g/dL (11.5-14.8); LYMPHOCYTES # (AUTO) 0.9 /CMM (0.8-4.8); LYMPHOCYTES % (AUTO) 3.3 % (20.0-44.0); MEAN CORPUSCULAR HEMOGLOBIN 35 PG (26.0-33.0); MEAN CORPUSCULAR HGB CONC 34 g/dl (31.0-36.0); MEAN CORPUSCULAR VOLUME 102 fL (82-100); MONOCYTES # (AUTO) 1.5 /CMM (0.1-1.30); MONOCYTES % (AUTO) 5.7 % (2.0-12.0); NEUTROPHILS # (AUTO) 24.2 /CMM (1.8-8.9); NEUTROPHILS % (AUTO) 90.1 % (43.0-81.0); PLATELET COUNT (AUTO) 194 /CMM (150-450); RDW COEFFICIENT OF VARIATION 15.6 (11.5-15.0); RED BLOOD CELL COUNT(AUTO) 3.45 MIL/uL (4.0-5.2); WHITE BLOOD COUNT (AUTO) 26.8 K/uL (4.3-11.0)
--- NOTE | 2017-01-15 06:46 | NUR ---
MS RN NOTE NO ACUTE CHANGE OF CONDITION NOTED DURING THE MOTORCYCLE RIDING INSTRUCTOR, PATIENT IS RESTING IN BED COMFORTABLY, IV IS PATENT AND INTACT, POWERS BRIGHT RED URINE NOTED DUE TO THE MED. WILL ENDORSE TO DAY SHIFT NURSE FOR GISEL.
[2017-01-15 07:05] LABS: CALCIUM, SERUM 7.9 mg/dL (8.5-10.1); CREATININE 1.1 mg/dL (0.6-1.3); PHOSPHORUS 2.7 mg/dL (2.5-4.9); POTASSIUM 3.6 mmol/L (3.5-5.1)
--- NOTE | 2017-01-15 07:57 | NUR ---
MS RN NOTE RECEIVED PATIENT RESTING IN BED AWAKE AND ORIENTED X1, APPEARS CONFUSED AT TIMES. RESPIRATIONS EVEN AND UNLABORED, ON 02 VIA NC. NO S/S OF PAIN/DISCOMFORT NOTED. POWERS CATH NOTED WITH BRIGHT RED URINE. SAFETY MEASURES RENDERED, SRX2, BED IN LOW POSITION, CALL LIGHT WITHIN REACH, WILL CONTINUE TO MONITOR PATIENT.
[2017-01-15 08:00] VITALS: BP 123/77
[2017-01-15] MEDS: CITALOPRAM HYDROBROMIDE 20 MG TABLET PO SCH (08:15)
[2017-01-15] MEDS: CIPROFLOXACIN IV RTU 400 MG in PREMIX 1 EA IV SCH ×2 (08:15→20:30)
[2017-01-15] MEDS: THIAMINE HCL 100 MG TABLET PO SCH (08:15)
[2017-01-15] MEDS: NYSTATIN TOP POWDER 15 GM BOTTLE TP SCH (08:16)
[2017-01-15] MEDS: Z GUARD REMEDY 2 OZ OINT TP SCH (08:16)
[2017-01-15] MEDS: BOOST PLUS FOOD-CHOCLATE 237 ML BOX PO SCH (08:19)
[2017-01-15 08:51] LABS: BAND % (MANUAL) 1 % (0.0-5.0); EOSINOPHILS % (MANUAL) 1 % (0-4); LYMPHOCYTES % (MANUAL) 2 % (16-48); MONOCYTES % (MANUAL) 6 % (0-11.0); NEUTROPHILS % (MANUAL) 90 (42-76)
[2017-01-15 09:14] VITALS: BP 123/77
[2017-01-15] MEDS: MICAFUNGIN SODIUM 100 MG in IV NS 0.9% 100 ML IV SCH (09:45)
[2017-01-15] MEDS ORDERED: DOSE PER PHARMACY MICAFUNGIN 1 EA XX PRN (10:00)
[2017-01-15 12:00] VITALS: BP 118/54
[2017-01-15] MEDS: RIFAMPIN 600 MG in IV NS 0.9% 100 ML IV SCH (12:46)
--- NOTE | 2017-01-15 13:30 | NUR ---
MS/RN NOTES PATIENTS SCHEDULED IV ANTIBIOTICS ADMINISTERED PRESCRIBED. NO S/S OF COMPLICATIONS NOTED. PATIENT PERIODICALLY CONFUSED HOWEVER ABLE TO COMMUNICATE NEEDS. NO SIGNIFICANT CHANGES NOTED AT THIS TIME. WILL CONTINUE TO MONITOR.
[2017-01-15 16:00] VITALS: BP 107/54
--- NOTE | 2017-01-15 19:00 | NUR ---
MS/RN NOTES PATIENT COMPLAINTS OF GASTRIC DISCOMFORT. ADMINISTERED MYLICON 80 MG ORDERED.
--- NOTE | 2017-01-15 19:15 | NUR ---
MS/RN NOTES PATIENT RESTING IN BED, NO SIGNIFICANT CHANGES NOTED, APPEARS STABLE AT THIS TIME. VITAL SIGNS WITHIN NORMAL LIMITS. ALL DUE MEDICATIONS GIVEN, ALL IV ANTIBIOTICS INFUSED WELL. IV RE-INSERTED TO LEFT HAND 22G FOR EMPIRIC ANTIBIOTICS. ALL NEEDS MET AND ATTENDED. PATIENT KEPT CLEAN AND DRY, ASSISTED WITH BATH, IMPLEMENTED WOUND CARE ORDERED, REPOSITIONED EVERY 2 HOURS. SAFETY MEASURES RENDERED, WILL ENDORSE CARE TO SOCIAL WORKER MASTERS FOR GISEL.
--- NOTE | 2017-01-15 19:30 | NUR ---
MS/RN NOTES RECEIVED PT. LYING IN BED. AWAKE, ALERT AND ORIENTED X2 WITH PERIODS OF CONFUSION NOTED. BREATHING EVEN AND UNLABORED ON 2LPM O2 VIA NC. NO SOB, RESPIRATORY DISTRESS OR COMPLAINTS OF PAIN NOTED AT THIS TIME. PT. WITH LEFT HAND 22 GAUGE IV SALINE LOCK PRESENT, PATENT AND INTACT. BED IN LOWEST POSITION, SIDE RAILS UP X3, CALL LIGHT WITHIN REACH, WILL CONTINUE TO MONITOR. Addendum: 01/15/17 at 2017 by FRANKIE SERRANO RN PT. WITH POWERS CATHETER PRESENT, PATENT AND INTACT DRAINING CLEAR ORANGE COLORED URINE.
[2017-01-15 20:00] VITALS: BP 104/63
[2017-01-15] MEDS: NEOMY SULF/BACITRAC ZN/POLY 15 GM TUBE TP SCH (20:30)
[2017-01-15] MEDS ORDERED: MEROPENEM 1 G in IV NS 0.9% 100 ML IV SCH (23:00)
[2017-01-16] MEDS ORDERED: VANCOMYCIN HCL 125 MG/2.5 ML ORAL.SUSP ONE ×2 (00:43→04:36)
[2017-01-16] MEDS: VANCOMYCIN FOR PO/GT USE 500 MG ORAL.SUSP PO SCH ×2 (00:49→05:54)
--- NOTE | 2017-01-16 02:14 | NUR ---
MS/RN NOTES PT. LYING IN BED RESTING. BREATHING EVEN AND UNLABORED. NO SOB, RESPIRATORY DISTRESS OR COMPLAINTS OF PAIN NOTED. ALL DUE MEDICATIONS GIVEN. PT. APPEARS COMFORTABLE AT THIS TIME. WILL CONTINUE TO MONITOR.
[2017-01-16] MEDS: METRONIDAZOLE 500MG/ NS 100ML 500 MG in PREMIX 1 EA IV SCH ×3 (05:54→20:40)
[2017-01-16 06:34] LABS: BASOPHILS # (AUTO) 0.1 /CMM (0.0-0.2); BASOPHILS % (AUTO) 0.2 % (0.0-2.0); EOSINOPHILS # (AUTO) 0.2 /CMM (0.0-0.7); EOSINOPHILS % (AUTO) 0.6 % (0.0-6.0); HEMATOCRIT 37 % (33-45); HEMOGLOBIN 12.3 g/dL (11.5-14.8); LYMPHOCYTES % (AUTO) 3.6 % (20.0-44.0); MEAN CORPUSCULAR HEMOGLOBIN 34 PG (26.0-33.0); MEAN CORPUSCULAR HGB CONC 34 g/dl (31.0-36.0); MEAN CORPUSCULAR VOLUME 102 fL (82-100); MONOCYTES % (AUTO) 17.9 % (2.0-12.0); NEUTROPHILS # (AUTO) 21.6 /CMM (1.8-8.9); NEUTROPHILS % (AUTO) 77.7 % (43.0-81.0); PLATELET COUNT (AUTO) 225 /CMM (150-450); RDW COEFFICIENT OF VARIATION 15.8 (11.5-15.0); WHITE BLOOD COUNT (AUTO) 27.8 K/uL (4.3-11.0)
--- NOTE | 2017-01-16 06:37 | NUR ---
MS/RN NOTES PT. IS LYING IN BED. AWAKE, ALERT AND ORIENTED X2 WITH PERIODS OF CONFUSION NOTED. BREATHING EVEN AND UNLABORED ON 2LPM O2 VIA NC. NO SOB, RESPIRATORY DISTRESS OR COMPLAINTS OF PAIN NOTED AT THIS TIME. PT. WITH LEFT HAND 22 GAUGE IV SALINE LOCK PRESENT, PATENT AND INTACT. PT. WITH POWERS CATHETER PRESENT, PATENT AND INTACT DRAINING CLEAR ORANGE COLORED URINE. ALL PT. NEEDS MET. PT. TURNED AND REPOSITIONED Q2H AND NEEDED. BED IN LOWEST POSITION, SIDE RAILS UP X3, CALL LIGHT WITHIN REACH, [facility] OF CARE.
[2017-01-16 06:41] LABS: CALCIUM, SERUM 8.1 mg/dL (8.5-10.1); CREATININE 1.7 mg/dL (0.6-1.3); MAGNESIUM 2.1 mg/dL (1.8-2.4); PHOSPHORUS 3.4 mg/dL (2.5-4.9); POTASSIUM 4.4 mmol/L (3.5-5.1)
[2017-01-16 08:00] VITALS: BP 99/57
--- NOTE | 2017-01-16 08:00 | NUR ---
AM RN NOTES RECEIVED PT IN STABLE CONDITION, AWAKE, NO SOB OR DISTRESS NOTED, NO PAIN OR DISCOMFORT, REFUSING BREAKFAST AT THIS TIME, WILL MONITOR.
[2017-01-16 08:44] LABS: LYMPHOCYTES % (MANUAL) 3 % (16-48); MONOCYTES % (MANUAL) 7 % (0-11.0); NEUTROPHILS % (MANUAL) 90 (42-76)
[2017-01-16] MEDS: CEFEPIME 2 GM in IV D5W 100 ML IV SCH (08:59)
[2017-01-16] MEDS: THIAMINE HCL 100 MG TABLET PO SCH (09:00)
[2017-01-16] MEDS: BOOST PLUS FOOD-CHOCLATE 237 ML BOX PO SCH (09:00)
[2017-01-16] MEDS: CITALOPRAM HYDROBROMIDE 20 MG TABLET PO SCH (09:00)
[2017-01-16] MEDS: Z GUARD REMEDY 2 OZ OINT TP SCH (09:01)
[2017-01-16] MEDS: NYSTATIN TOP POWDER 15 GM BOTTLE TP SCH (09:01)
[2017-01-16] MEDS: NEOMY SULF/BACITRAC ZN/POLY 15 GM TUBE TP SCH ×2 (09:01→16:29)
[2017-01-16] MEDS: VANCOMYCIN HCL 125 MG/2.5 ML ORAL.SUSP PO SCH ×4 (09:34→21:07)
[2017-01-16] MEDS: DOXYCYCLINE 100 MG in IV D5W 100 ML IV SCH ×2 (09:36→21:44)
[2017-01-16] MEDS: IV NS 0.9% 1,000 ML IV PRN (10:29)
[2017-01-16] MEDS: MICAFUNGIN SODIUM 100 MG in IV NS 0.9% 100 ML IV SCH (10:29)
[2017-01-16] MEDS: RIFAMPIN 600 MG in IV NS 0.9% 100 ML IV SCH (10:59)
--- NOTE | 2017-01-16 11:00 | NUR ---
INFORMED ABOUT PT'S POOR APATITE AND LOW PO INTAKE, STARTED ON IVF, WILL MONITOR.
--- NOTE | 2017-01-16 18:25 | NUR ---
PT IN STABLE CONDITION, NO ABDOMINAL PAIN NOTED, NO SOB OR DISTRESS, WITH POOR ORAL INTAKE, ENCOURAGED TO EAT, WILL INDORSE TO NEXT SHIFT FOR GISEL.
--- NOTE | 2017-01-16 19:25 | NUR ---
RN NOTES RECEIVED PT AWAKE, HOB ELEVATED, NO SOB, NOT IN DISTRESS WITHO2 INHALATION AT 2LPM VIA NC AND TOLERATED WELL. PT ALERT AND ORIENTED X2 WITH CONFUSION NOTED. PT DENIES ANY PAIN AND DISCOMFORT AT THIS TIME. IV ACCESS ON LEFT HAND PATENT AND INTACT WITH ONGOING IVF INFUSING WELL. ENCOURAGE PT TO EAT DINNER, PT ATE 25% OF HER MEAL. POWERS CATH INTACT WITH ORANGE COLORED URINE OUTPUT NOTED. KEPT BED IN THE LOWEST POSITION, LOCKED, SIDE RAILS UPX3 WITH CALL LIGHT WITHIN REACH. SAFETY MEASURES IN PLACED. FALL PRECAUTION OBSERVED. KEPT COMFORTABLE AND ATTENDED. WILL CONTINUE TO MONITOR PT.
[2017-01-16 20:00] VITALS: BP 97/63
[2017-01-17] MEDS: IV NS 0.9% 1,000 ML IV PRN ×2 (02:49→21:59)
[2017-01-17] MEDS: METRONIDAZOLE 500MG/ NS 100ML 500 MG in PREMIX 1 EA IV SCH ×3 (04:47→20:48)
--- NOTE | 2017-01-17 07:06 | NUR ---
RN NOTES PT AWAKE, HOB ELEVATED, NO SOB, NOT IN DISTRESS, WITH O2 INHALATION AT 3LPM VIA NC WITH GOOD SATURATION. NOTED WITH PERIODS OF CONFUSION, REORIENT NEEDED. VITAL SIGNS STABLE, AFEBRILE. NO COMPLAIN OF PAIN. NO EPISODE OF NAUSEA AND VOMITING. ALL DUE MEDS GIVEN. KEPT CLEAN AND DRY. SKIN CARE AND WOUND CARE DONE. TURNED AND REPOSITION Q2H. ALL NEEDS ATTENDED. WILL ENDORSE TO MORNING RN FOR CONTINUITY OF CARE.
[2017-01-17 07:10] LABS: BASOPHILS % (AUTO) 0.1 % (0.0-2.0); EOSINOPHILS # (AUTO) 0.3 /CMM (0.0-0.7); HEMATOCRIT 35 % (33-45); HEMOGLOBIN 11.7 g/dL (11.5-14.8); LYMPHOCYTES # (AUTO) 1.1 /CMM (0.8-4.8); MEAN CORPUSCULAR HEMOGLOBIN 35 PG (26.0-33.0); MEAN CORPUSCULAR HGB CONC 34 g/dl (31.0-36.0); MEAN CORPUSCULAR VOLUME 102 fL (82-100); MONOCYTES # (AUTO) 2.7 /CMM (0.1-1.30); MONOCYTES % (AUTO) 9.4 % (2.0-12.0); NEUTROPHILS # (AUTO) 24.6 /CMM (1.8-8.9); NEUTROPHILS % (AUTO) 85.5 % (43.0-81.0); PLATELET COUNT (AUTO) 213 /CMM (150-450); RDW COEFFICIENT OF VARIATION 15.9 (11.5-15.0); RED BLOOD CELL COUNT(AUTO) 3.39 MIL/uL (4.0-5.2); WHITE BLOOD COUNT (AUTO) 28.8 K/uL (4.3-11.0)
[2017-01-17 08:00] VITALS: BP 106/52
[2017-01-17 08:06] LABS: CALCIUM, SERUM 7.8 mg/dL (8.5-10.1); CREATININE 2.4 mg/dL (0.6-1.3); MAGNESIUM 1.9 mg/dL (1.8-2.4); PHOSPHORUS 4.5 mg/dL (2.5-4.9); POTASSIUM 4.6 mmol/L (3.5-5.1)
[2017-01-17] MEDS: DOXYCYCLINE 100 MG in IV D5W 100 ML IV SCH ×2 (08:40→21:56)
[2017-01-17] MEDS: CITALOPRAM HYDROBROMIDE 20 MG TABLET PO SCH (08:40)
[2017-01-17] MEDS: THIAMINE HCL 100 MG TABLET PO SCH (08:40)
[2017-01-17] MEDS: NYSTATIN TOP POWDER 15 GM BOTTLE TP SCH (08:50)
[2017-01-17] MEDS: NEOMY SULF/BACITRAC ZN/POLY 15 GM TUBE TP SCH ×2 (08:50→18:08)
[2017-01-17] MEDS: Z GUARD REMEDY 2 OZ OINT TP SCH (08:51)
[2017-01-17 09:24] LABS: EOSINOPHILS % (MANUAL) 3 % (0-4); LYMPHOCYTES % (MANUAL) 1 % (16-48); MONOCYTES % (MANUAL) 6 % (0-11.0); NEUTROPHILS % (MANUAL) 90 (42-76)
[2017-01-17] MEDS: VANCOMYCIN HCL 125 MG/2.5 ML ORAL.SUSP PO SCH ×4 (10:15→20:50)
[2017-01-17] MEDS: BOOST PLUS FOOD-CHOCLATE 237 ML BOX PO SCH (10:15)
[2017-01-17] MEDS: CEFEPIME 2 GM in IV D5W 100 ML IV SCH (10:22)
[2017-01-17] MEDS: MICAFUNGIN SODIUM 100 MG in IV NS 0.9% 100 ML IV SCH (11:01)
[2017-01-17 12:00] VITALS: BP 135/42
[2017-01-17] MEDS: RIFAMPIN 600 MG in IV NS 0.9% 100 ML IV SCH (12:31)
[2017-01-17] MEDS ORDERED: MEROPENEM 1 G in IV NS 0.9% 100 ML IV SCH (14:00)
[2017-01-17 15:29] LABS: CREATININE, URINE 98.2 MG/DL (30.0-125.0)
[2017-01-17 16:00] VITALS: BP 86/42
[2017-01-17] MEDS: RIFAXIMIN 200 MG TABLET PO SCH (18:07)
--- NOTE | 2017-01-17 19:30 | NUR ---
ACUTE CARE OCCUPATIONAL THERAPIST OPENING NOTES: PATIENT IN BED, AOX2, ON O2 AT 3 LPM VIA NC. BREATHING EVEN AND UNLABORED. BREATH SOUNDS CLEAR TO AUSCULTATION. PIV OVER LEFT ARM G 22 INTACT AND PATENT, INFUSING WELL WITH NS RUNNING AT 75 ML/HR. POWERS CATHETER IN PLACE DRAINING DARK ORANGE/ DASH COLORED URINE. NOTED ABDOMEN TO BE RIGID AND DISTENDED, PATIENT COMPLAINS OF MILD PAIN OVER ABDOMEN, UNABLE TO CLEARLY SCALE LEVEL OF PAIN, BUT PATIENT CURRENTLY APPEARS CALM AND IN NO DISTRESS. PROVIDED FOR COMFORT AND SAFETY. BED IN LOWEST AND LOCKED POSITION, SIDERAILS UP X3. BED ALARMS ON. WILL CONT TO MONITOR.
[2017-01-17 20:00] VITALS: BP 92/60
[2017-01-18] VITALS: BP 88/38
--- NOTE | 2017-01-18 01:08 | NUR ---
RN NOTES: NOTED PATIENT'S UO TO BE ONLY AT 30 ML AT THIS TIME. NOTIFIED CN. BLADDER SCAN DONE, NOTED > 900 ML OVER SUPRAPUBIC AREA, HOWEVER, PATIENT HAS ASCITES. NO LEAK NOTED FROM AROUND POWERS CATHETER SITE INSERTION. IRRIGATED POWERS CATHETER WITH 20 CC SALINE. WILL CONT TO MONITOR.
[2017-01-18 04:00] VITALS: BP 94/56
[2017-01-18] MEDS: METRONIDAZOLE 500MG/ NS 100ML 500 MG in PREMIX 1 EA IV SCH ×3 (04:35→20:30)
--- NOTE | 2017-01-18 05:00 | NUR ---
RN NOTES: CALLED DR BOOTHE REGARDING PATIENT'S DECREASED URINE OUTPUT (50 ML FROM START OF SHIFT), AND ALSO INFORMED MD OF UPWARD TREND OF BUN AND CREATININE. NO NEW ORDERS GIVEN BY MD, HE STATED THAT HE WILL COME TO SEE PATIENT IN A COUPLE OF HOURS. WILL CONT TO MONITOR PATIENT.
--- NOTE | 2017-01-18 07:15 | NUR ---
MS RN CLOSING NOTES: PATIENT IN BED, AOX2, ON O2 AT 3 LPM VIA NC, BREATHING EVEN AND UNLABORED, BREATH SOUNDS DIMINISHED OVER LOWER LUNG NELSON. PIV OVER LFA G22 INTACT AND INFUSING WELL WITH NS RUNNING AT 75 ML/HR. POWERS CATHETER IN PLACE, DRAINING ORANGE COLORED URINE. UO NOTED TO BE ONLY 50 ML THROUGH WHOLE SHIFT, INFORMED DR BOOTHE, NNO GIVEN. PROVIDED FOR COMFORT AND SAFETY. MORNING CARE RENDERED. WOUND TREATMENT DONE, TURNED AND REPOSITIONED PATIENT Q2HR. NO ACUTE CHANGE IN CONDITION NOTED THROUGH SHIFT. BED IN LOWEST AND LOCKED POSITION, SIDERAILS UP X3. CALL LIGHT WITHIN REACH. ENDORSED TO AM RN JARED FOR GISEL. .
--- NOTE | 2017-01-18 07:33 | NUR ---
RN INITIAL NOTE REPORT RECEIVED FROM MARTHA DORAN PM SHIFT. NC 3 L NO C/O SOB. PT A/O X2 FORGETFUL AND CONFUSED. PT MS . FC INTACT. IV L ARM 22G NS @ 75 ML/HR. WILL CONTINUE TO MONITOR CLOSELY. ALL SAFETY MEASURES IN PLACE.
[2017-01-18 08:00] VITALS: BP 92/56
[2017-01-18 08:16] LABS: BASOPHILS # (AUTO) 0.3 /CMM (0.0-0.2); BASOPHILS % (AUTO) 1.1 % (0.0-2.0); EOSINOPHILS # (AUTO) 0.3 /CMM (0.0-0.7); HEMATOCRIT 35 % (33-45); HEMOGLOBIN 11.9 g/dL (11.5-14.8); LYMPHOCYTES % (AUTO) 3.1 % (20.0-44.0); MEAN CORPUSCULAR HEMOGLOBIN 35 PG (26.0-33.0); MEAN CORPUSCULAR HGB CONC 34 g/dl (31.0-36.0); MEAN CORPUSCULAR VOLUME 101 fL (82-100); MONOCYTES # (AUTO) 2.7 /CMM (0.1-1.30); MONOCYTES % (AUTO) 8.9 % (2.0-12.0); NEUTROPHILS # (AUTO) 26.5 /CMM (1.8-8.9); NEUTROPHILS % (AUTO) 85.9 % (43.0-81.0); PLATELET COUNT (AUTO) 260 /CMM (150-450); RED BLOOD CELL COUNT(AUTO) 3.45 MIL/uL (4.0-5.2)
[2017-01-18 08:28] LABS: ALBUMIN 2.4 g/dL (3.4-5.0); CALCIUM, SERUM 7.8 mg/dL (8.5-10.1); MAGNESIUM 1.8 mg/dL (1.8-2.4); PHOSPHORUS 5.4 mg/dL (2.5-4.9); POTASSIUM 4.4 mmol/L (3.5-5.1)
[2017-01-18 08:29] LABS: WHITE BLOOD COUNT (AUTO) 30.8 K/uL (4.3-11.0)
[2017-01-18] MEDS: BOOST PLUS FOOD-CHOCLATE 237 ML BOX PO SCH (08:35)
[2017-01-18] MEDS: THIAMINE HCL 100 MG TABLET PO SCH (08:36)
[2017-01-18] MEDS: RIFAXIMIN 200 MG TABLET PO SCH ×3 (08:36→16:32)
[2017-01-18] MEDS: CITALOPRAM HYDROBROMIDE 20 MG TABLET PO SCH (08:36)
[2017-01-18] MEDS: VANCOMYCIN HCL 125 MG/2.5 ML ORAL.SUSP PO SCH ×4 (08:36→20:43)
[2017-01-18] MEDS: MICAFUNGIN SODIUM 100 MG in IV NS 0.9% 100 ML IV SCH (08:36)
[2017-01-18] MEDS: NEOMY SULF/BACITRAC ZN/POLY 15 GM TUBE TP SCH ×2 (08:41→16:33)
[2017-01-18] MEDS: NYSTATIN TOP POWDER 15 GM BOTTLE TP SCH (08:41)
[2017-01-18] MEDS: Z GUARD REMEDY 2 OZ OINT TP SCH (08:41)
[2017-01-18] MEDS: DOXYCYCLINE 100 MG in IV D5W 100 ML IV SCH ×2 (10:01→21:56)
[2017-01-18 10:05] LABS: LYMPHOCYTES % (MANUAL) 4 % (16-48); MONOCYTES % (MANUAL) 12 % (0-11.0); NEUTROPHILS % (MANUAL) 84 (42-76)
[2017-01-18] MEDS: ALBUMIN 25% 25 GM in PREMIX 1 EA IV SCH ×2 (13:21→18:00)
--- NOTE | 2017-01-18 15:04 | NUR ---
RN NOTE SPOKE TO DR. PALACIO AND STOOD TOGETHER @ BEDSIDE WITH PT AND RECEIVED CONSENT FOR TOMORROW FOR BONE MARROW BIOPSY. DR. PALACIO AWARE PT HAS NO FAMILY AND MAKES DECISIONS FOR HERSELF. DR. PALACIO WITNESSED AND SIGNED CONSENT WITH ME.
[2017-01-18 16:00] VITALS: BP 97/58
[2017-01-18] MEDS: HYDROCODONE/APAP 5/325MG 1 EACH TABLET PO PRN (16:31)
[2017-01-18] MEDS: IV NS 0.9% 1,000 ML IV PRN (17:38)
--- NOTE | 2017-01-18 19:20 | NUR ---
MS/RN OPENING NOTES PT AWAKE, SITTING UP IN BED. ON O2 VIA NC AT 3LPM. BREATHING EVEN AND UNLABORED. NO S/S OF DISTRESS NOTED. POWERS IN PLACE. IV TO LFA PATENT AND INTACT RUNNING IVF ORDERED. BED IN LOW/LOCKED POSITION WITH CALL LIGHT IN REACH. SIDE RAILS UPX2. BED ALARM ON. WILL CONTINUE TO MONITOR
--- NOTE | 2017-01-18 19:20 | NUR ---
RN CLOSING NOTE REPORT GIVEN TO LORELEI DORAN PM SHIFT. NC 3 L NO C/O SOB. PT A/O X2 FORGETFUL AT TIMES. PT MS . FC INTACT. IV L ARM 22G NS @ 75 ML/HR. ALL ORDERS CARRIED AND MEDICATIONS GIVEN. ALL SAFETY MEASURES IN PLACE.
[2017-01-18 20:00] VITALS: BP 109/44
[2017-01-18 20:09] VITALS: BP 109/44
[2017-01-19] MEDS: ALBUMIN 25% 25 GM in PREMIX 1 EA IV SCH ×2 (00:21→06:26)
[2017-01-19 04:00] VITALS: BP 105/75
[2017-01-19] MEDS: METRONIDAZOLE 500MG/ NS 100ML 500 MG in PREMIX 1 EA IV SCH ×3 (04:30→21:49)
--- NOTE | 2017-01-19 06:32 | NUR ---
TELE/RN CLOSING NOTES PT ASLEEP, EASILY AROUSABLE TO NAME. ON 2LPM O2 VIA NC, BREATHING EVEN AND UNLABORED. NO S/S OF DISTRESS NOTED. NO FACIAL GRIMACING OR SIGNS OF PAIN. A/OX1, CONFUSED. ON TELE MONITOR, SHOWING SINUS GAYATHRI WITH HEART RATE AT 57. NGT TO RIGHT NARE PATENT AND INTACT RUNNING GLYTROL AT 70ML/HR. REMAINS ON BILATERAL SOFT WRIST RESTRAINTS, REMOVED PRN, CIRCULATION CHECKED. KARYN MIDLINE PATENT AND INTACT. BED IN LOW/LOCKED POSITION WITH CALL LIGHT IN REACH. MADE PT COMFORTABLE THROUGHOUT SHIFT. TURNED/REPOSITIONED Q2H AND EXTREMITIES OFFLOADED. SIDE RAILS UPX3 WITH BED ALARM ON FOR SAFETY. WILL ENDORSE TO AM SHIFT GISEL. Addendum: 01/19/17 at 0635 by LORELEI DUENAS RN WRONG PATIENT
--- NOTE | 2017-01-19 06:37 | NUR ---
MS/RN CLOSING NOTES PT AWAKE, A/OX2 FORGETFUL. REMAINS ON 3LPM O2 VIA NC. BREATHING EVEN AND UNLABORED. NO COMPLAINTS OF PAIN AT THIS TIME. IV TO LFA PATENT AND INTACT RUNNING IVF ORDERED. LAST DOSE OF ALBUMIN INFUSING NOW. PT FOR BONE MARROW BIOPSY AND ASPIRATION TODAY. CONSENTS SIGNED AND IN THE PT'S CHART. TURNED/REPOSITION Q2H AND EXTREMITIES OFFLOADED. ALL NEEDS MET AND ATTENDED. MADE PT COMFORTABLE THROUGHOUT SHIFT. BED IN LOW/LOCKED POSITION WITH CALL LIGHT IN REACH. SIDE RAILS UPX3 WITH BED ALARM ON. WILL ENDORSE TO AM SHIFT GISEL.
--- NOTE | 2017-01-19 07:19 | NUR ---
RN INITIAL NOTE REPORT RECEIVED FROM LORELEI DORAN PM SHIFT FOR GISEL. NC 3 L NO C/O SOB. PT A/O X2 FORGETFUL AT TIMES. PT MS . FC INTACT. IV L ARM 22G NS @ 75 ML/HR. WILL CONTINUE TO MONITOR CLOSELY. PT AWAITING BONE MARROW ASPIRATION THIS AFTERNOON WITH DR. PALACIO. CONSENT SIGNED AND IN CHART. ALL SAFETY MEASURES IN PLACE.
[2017-01-19 07:47] LABS: ALBUMIN 3.4 g/dL (3.4-5.0); BILIRUBIN,TOTAL 4.6 mg/dL (0.2-1.0); CALCIUM, SERUM 8.1 mg/dL (8.5-10.1); CREATININE 3.3 mg/dL (0.6-1.3); MAGNESIUM 1.7 mg/dL (1.8-2.4); PHOSPHORUS 6.3 mg/dL (2.5-4.9); POTASSIUM 4.3 mmol/L (3.5-5.1); TOTAL PROTEIN, SERUM 5.9 g/dL (6.4-8.2)
[2017-01-19 07:50] LABS: BASOPHILS # (AUTO) 0.2 /CMM (0.0-0.2); BASOPHILS % (AUTO) 0.7 % (0.0-2.0); EOSINOPHILS # (AUTO) 0.3 /CMM (0.0-0.7); EOSINOPHILS % (AUTO) 1.1 % (0.0-6.0); HEMATOCRIT 29 % (33-45); HEMOGLOBIN 9.5 g/dL (11.5-14.8); LYMPHOCYTES # (AUTO) 1.3 /CMM (0.8-4.8); LYMPHOCYTES % (AUTO) 4.8 % (20.0-44.0); MEAN CORPUSCULAR HEMOGLOBIN 34 PG (26.0-33.0); MEAN CORPUSCULAR HGB CONC 33 g/dl (31.0-36.0); MEAN CORPUSCULAR VOLUME 102 fL (82-100); MONOCYTES # (AUTO) 1.7 /CMM (0.1-1.30); MONOCYTES % (AUTO) 6.3 % (2.0-12.0); NEUTROPHILS # (AUTO) 23.2 /CMM (1.8-8.9); NEUTROPHILS % (AUTO) 87.1 % (43.0-81.0); PLATELET COUNT (AUTO) 208 /CMM (150-450); RED BLOOD CELL COUNT(AUTO) 2.79 MIL/uL (4.0-5.2); WHITE BLOOD COUNT (AUTO) 26.7 K/uL (4.3-11.0)
[2017-01-19 07:55] LABS: INR 2.36 (0.87-1.13); PROTHROMBIN TIME 26.7 SECS (9.5-12.7)
[2017-01-19 08:00] VITALS: BP 106/62
[2017-01-19] MEDS: VANCOMYCIN HCL 125 MG/2.5 ML ORAL.SUSP PO SCH ×4 (08:25→20:53)
[2017-01-19] MEDS: CITALOPRAM HYDROBROMIDE 20 MG TABLET PO SCH (08:25)
[2017-01-19] MEDS: RIFAXIMIN 200 MG TABLET PO SCH ×3 (08:25→16:13)
[2017-01-19] MEDS: BOOST PLUS FOOD-CHOCLATE 237 ML BOX PO SCH (08:26)
[2017-01-19] MEDS: MICAFUNGIN SODIUM 100 MG in IV NS 0.9% 100 ML IV SCH (08:26)
[2017-01-19] MEDS: THIAMINE HCL 100 MG TABLET PO SCH (08:27)
[2017-01-19] MEDS: Z GUARD REMEDY 2 OZ OINT TP SCH (08:31)
[2017-01-19] MEDS: NYSTATIN TOP POWDER 15 GM BOTTLE TP SCH (08:31)
[2017-01-19] MEDS: NEOMY SULF/BACITRAC ZN/POLY 15 GM TUBE TP SCH ×2 (08:32→16:13)
[2017-01-19 09:28] LABS: EOSINOPHILS % (MANUAL) 2 % (0-4); LYMPHOCYTES % (MANUAL) 14 % (16-48); NEUTROPHILS % (MANUAL) 84 (42-76)
[2017-01-19] MEDS: DOXYCYCLINE 100 MG in IV D5W 100 ML IV SCH ×2 (09:28→20:52)
--- NOTE | 2017-01-19 10:35 | NUR ---
RN NOTE SPOKE WITH DR. FERRELL REGARDING PT BUN LEVEL. AWARE.
[2017-01-19] MEDS ORDERED: LIDOCAINE 1% INJ 50 ML MDV IJ ONE (15:00)
[2017-01-19] MEDS: IV NS 0.9% 1,000 ML IV PRN (15:35)
[2017-01-19 16:00] VITALS: BP_SYST 106; BP_SYST 89; BP_DIAS 52; BP_DIAS 62
[2017-01-19] MEDS ORDERED: PHYTONADIONE 5 MG TABLET PO ONE (16:00)
--- NOTE | 2017-01-19 19:32 | NUR ---
RN CLOSING NOTE REPORT GIVEN TO FUAD DORAN PM SHIFT FOR GISEL. NC 3 L NO C/O SOB. PT A/O X2 FORGETFUL AT TIMES. PT MS . FC INTACT. IV L ARM 22G NS @ 75 ML/HR. PT AWAITING BONE MARROW ASPIRATION FOR TOMORROW DUE TO COAGULATION LEVELS. ALL SAFETY MEASURES IN PLACE. ALL ORDERS CARRIED OUT.
--- NOTE | 2017-01-19 19:35 | NUR ---
RN INITIAL NOTES: RECEIVED REPORT FROM JARED DORAN, PT IN BED, AWAKE, ON 2L VIA NC PT DENIES ANY SOB AT THIS TIME, PT DENIES ANY PAIN OR DISCOMFORT, PT IS A/O X2, ABLE TO SNATE HER NAME DATE OF AND WHERE SHE IS, BUT DOESNT KNOW THE YEAR AND PRESIDENT, PER REPORT PT IS CONFUSED AT TIMES, PT IS CURRENTLY RECEIVING NS AT 75ML/HR AND HAS LFA G 22 PATENT AND FLUSHING WELL, PT NOTED MULTIPLE BRUISES ON EXTREMITIES. HAS POEWRS CATH IN PLACED DRAINING INTO CONCENTRATED URINE, NO ABDOMINAL DISTENTION NOTED, PER REPORT PT HAS LOW UO, 50ML, RIGHT NOW THERE IS ONLY 20ML OUTPUT IN THE BAG. SAFETY PRECAUTIONS FOR FALL INITIATED CALL LIGHT IN REACH, BLE OFFLOADED, WILL CONTINUE TO MONITOR Addendum: 01/19/17 at 2156 by SHANIKA FORD RN CORRECTION: PT HAS ABDOMINAL DISTENTION FROM ASCITES
[2017-01-19 20:00] VITALS: BP_SYST 110; BP_SYST 92; BP_DIAS 48; BP_DIAS 65
--- NOTE | 2017-01-19 21:09 | NUR ---
RN NOTES: PLACED PT ON HIGH FOWLERS POSITION, FEED PT WITH BOOST, 80ML OF BOOST DRINK BY THE PT, NO N/V OR ASPIRATION NOTED, PT WAS LEFT HIGH FOWLERS FOR NOW FOR 30MINSUTES,
[2017-01-19 21:10] VITALS: BP 110/65
--- NOTE | 2017-01-19 23:00 | NUR ---
RN NOTES: NOTED PT'S ABDOMEN DISTENDED DUE TO ASCITES, DECIDED TO TURNED OFF IVF TO PREVENT OVERLOADING THE PT,
[2017-01-20] VITALS (82 sets, daily range): BP systolic 60–118; BP diastolic 27–81
--- NOTE | 2017-01-20 04:43 | NUR ---
RN NOTES: NOTED PT'S DESATING LOW 80'S ON 2L VIA NC, PLACED PT ON HIGH FOWLERS AND PLACED ON NON REBREATHER MASK AT 15L/MIN, PT SATURATION ON 89-91%, VS TAKEN AND RECORDED, 118/81 HR 121, RR 17 PT PLACED ON TELE MONITORING APPEARS SINUS TACHY HR 120, CALLED RT LEOBARDO CAME TO SEE THE PT, CONTACTED DR POULTRY SERVICE TECHNICIAN, DR EMMANUEL POULTRY SERVICE TECHNICIAN, RELAYED ASSESSMENT, PER MD PETIT TO BE TRANSFERRED TO TELE WITH ALL MEDS, STAT ABG CXR AND CALL PULMO FOR CONSULT, RELAYED TO VULCANIZER OPERATOR INES
[2017-01-20] MEDS: METRONIDAZOLE 500MG/ NS 100ML 500 MG in PREMIX 1 EA IV SCH ×3 (05:18→21:48)
[2017-01-20 05:29] LABS: EOSINOPHILS # (AUTO) 0.3 /CMM (0.0-0.7); EOSINOPHILS % (AUTO) 0.7 % (0.0-6.0); HEMATOCRIT 31 % (33-45); HEMOGLOBIN 10.2 g/dL (11.5-14.8); LYMPHOCYTES # (AUTO) 3.5 /CMM (0.8-4.8); MEAN CORPUSCULAR HEMOGLOBIN 34 PG (26.0-33.0); MEAN CORPUSCULAR HGB CONC 33 g/dl (31.0-36.0); MEAN CORPUSCULAR VOLUME 103 fL (82-100); MONOCYTES # (AUTO) 2.2 /CMM (0.1-1.30); MONOCYTES % (AUTO) 6.4 % (2.0-12.0); NEUTROPHILS # (AUTO) 28.9 /CMM (1.8-8.9); NEUTROPHILS % (AUTO) 82.9 % (43.0-81.0); PLATELET COUNT (AUTO) 277 /CMM (150-450); RDW COEFFICIENT OF VARIATION 16.1 (11.5-15.0); RED BLOOD CELL COUNT(AUTO) 3.04 MIL/uL (4.0-5.2)
[2017-01-20 05:43] LABS: WHITE BLOOD COUNT (AUTO) 34.8 K/uL (4.3-11.0)
[2017-01-20 05:43] LABS: ABG BASE EXCESS -16.4 mmol/L; ABG OXYGEN SATURATION 93.3 % (92.0-98.5); ABG PCO2 43.2 mmHg (35.0-45.0); ABG PH 7.085 (7.350-7.450); ABG PO2 94.6 mmHg (75.0-100.0); AaDO2 575.2 mmHg; COHb 0.1 % (0.5-1.5); MetHb 0.9 % (0.0-1.5); O2Hb 92.4 % (94.0-97.0); SITE, ABG Right Radial; VENT MODE, BG NRB
--- NOTE | 2017-01-20 05:44 | NUR ---
RN NOTES: RECEIVED CRITICAL LAB FOR WBC, 34. 8, AND ABG RESULT IS COMPENSATED METABOLIC
[2017-01-20 05:48] LABS: CALCIUM, SERUM 8.5 mg/dL (8.5-10.1); POTASSIUM 5.1 mmol/L (3.5-5.1)
[2017-01-20 05:49] LABS: PROTHROMBIN TIME 34.4 SECS (9.5-12.7)
[2017-01-20 06:00] LABS: PHOSPHORUS 8.5 mg/dL (2.5-4.9)
--- NOTE | 2017-01-20 06:11 | NUR ---
RN NOTES: PLACED A CALL FOR TELEVISION SPECIALIST [place], BUT DISDNT DIRECTOR MUSIC, AWAITING FOR CALL BACK, ALSO CONTACTED DR JULIO RECEIVED ANOTHER CRITICAL LAB FROM MANE DOLL BUN 97, CREA 4.0 PHOS 8.5, AWAITING FOR CALL BACK
--- NOTE | 2017-01-20 06:15 | NUR ---
RN NOTES: PLACED A SECOND CALL TO MD DR EMMANUEL AND DR STEIN, AWAITING FOR CALL BACK
--- NOTE | 2017-01-20 06:15 | NUR ---
RN NOTES: PLACED A 3RD CALL FOR THE MD DR JULIO DUE TO CRITICAL LABS AND CHANGE IN PT;S CONDITION, AWAITING FOR CALL BACK
--- NOTE | 2017-01-20 06:50 | NUR ---
RN NOTES: REPORT GIVEN TO ESPINOZA COOPER
--- NOTE | 2017-01-20 06:54 | NUR ---
RN:ICU: PT RECEIVED FROM NOAH S/P CONDUCTOR SLEEPING CAR FOR RESPIRATORY DISTRESS AND ALOC. ORIGINAL DX SEPSIS, ASCITES AND ARF. PT RECEIVED PARACENTESIS ON December WITH 10 LITERS REMOVED. PT ARRIVED TO UNIT ALERTED UNABLE TO FOLLOW COMMANDS WITH EYES ROLLING BACK IN HER HEAD. PT NOTED WITH AGONAL BREATHING WELL UPON ARRIVAL. ER DOC AT THE BEDSIDE ASSESSING PATIENT. PT INTUBATED WITH 7.5 ETT 23 AT THE LIP O2 SAT 98%. PT NOTED TO BE FULL CODE WITHOUT ANY FAMILY ON RECORD. PT INTUBATED WITH ETOMIDATE 20MG AND ROCURONIUM 70MG VIA IV. PT HYPOTENSIVE S/P INTUBATION. PT NOTED TO HAVE COFFEE GROUND EMESIS DURING INTUBATION. BS CHECKED AND IS 131. PAGED DR JULIO TO RECEIVE FURTHER ORDERS. DR GARCIA ON UNIT AND NOTIFIED REGARDING ORDERS FOR CARDIAC CONSULT. PT REMAINS IN CRITICAL CONDITION. CHEST XRAY AT THE BEDSIDE TO ENSURE PROPPER ETT PLACEMENT. WILL ENDORSE FURTHER CARE TO DAYSHIFT AND TO FOLLOW UP WITH DR PALACIO REGARDING COAGULOPATHY.
--- NOTE | 2017-01-20 06:56 | NUR ---
BOBCAT OPERATOR: 06-- BOBCAT OPERATOR WAS CALLED PT HAS CHANGES IN CONDITION, ALSO BP DROPPING TO LOW 80'S AND SATURATION DROPPING TO 88% EVEN IF PT ON NON REBREATHER MASK 06-- BLOOD SUGAR WAS TAKEN AND REVEAL 123, VS T 97.4 HR 84 BP 73/49 SPO2 88% ON NON REBREATHER 0626-- BOBCAT OPERATOR TEAM ARRIVED, LEOBARDO BARRON, FURRIER DESIGNER PK AND BILLY KRUSE, NURSING DALIA AVERY BUSINESS MANAGER MD DR JULIO AND DR EMIL KU HAS BEEN PAGED 3X ALREADY BUT NO RESPONSE RECEIVED 0600-- DECIDED TO MOVE THE PT TO ICU IN ROOM 256 VIA ACLS PROTOCOL 639-- DR JULIO CALLED BACK, EXPLAINED THE CONDITION OF THE PT, PER MD TO TRANSFER PT TO ICU WITH ALL MEDS AND HE WILL BE HERE IN THE HOSPITAL SOON, MD ASKING IF RN CALLED BUSINESS INITIATIVES MANAGER, INFORMED MD THERE'S NO CARDIO ON BOARD BUT INSTEAD CALLED PULMONOLOGY DR STEIN, PT HAS NO [id number], ALL MEDS GIVEN TO ICU UPON TRANSFER
--- NOTE | 2017-01-20 07:28 | NUR ---
RN:ICU: DR. GARCIA AT THE BEDSIDE. ASSUMED ALL CARE TO LIAM AND ONCOMING NURSE. PT IN CRITICAL CONDITION.
[2017-01-20] MEDS ORDERED: PROPOFOL 100 ML IV PRN (07:30)
[2017-01-20] MEDS ORDERED: NOREPINEPHRINE 8 MG in IV D5W 500 ML IV PRN (07:30)
--- NOTE | 2017-01-20 07:30 | NUR ---
INITIAL LIME KILN WORKER HELPER NOTE RCVD PT INTUBATED 7.5 23 AT LIP, NON-RESPONSIVE TO PAINFUL STIMULI, ST ON TELE. TOLERATING ORDERED VENT SETTINGS AT THIS TIME. COFFEE GROUND EMESIS OBSERVED IN PT'S MOUTH, PT SUCTIONED. PT HYPOTENSIVE AT THIS TIME. DR. GARCIA TO ORDER LEVEPHED. POWERS DRAINING SMALL AMOUNT OF CONCENTRATED URINE. IV SITES C/D/I/PATENT. NO S/O INFILTRATION/PHLEBITIS OBSERVED. IVF INFUSING. WILL CONTINUE TO MONITOR PT FOR SAFETY AND COMFORT. BED IN LOW AND LOCKED POSITION.
[2017-01-20] MEDS: NOREPINEPHRINE 16 MG in IV D5W 500 ML IV PRN (07:41)
[2017-01-20 07:52] LABS: LYMPHOCYTES % (MANUAL) 7 % (16-48); MONOCYTES % (MANUAL) 6 % (0-11.0); NEUTROPHILS % (MANUAL) 87 (42-76)
[2017-01-20] MEDS: IV NS 0.9% 1,000 ML IV PRN (07:56)
[2017-01-20] MEDS: THIAMINE HCL 100 MG TABLET PO SCH (08:08)
[2017-01-20] MEDS: MICAFUNGIN SODIUM 100 MG in IV NS 0.9% 100 ML IV SCH (08:08)
[2017-01-20] MEDS: DOXYCYCLINE 100 MG in IV D5W 100 ML IV SCH (08:08)
[2017-01-20] MEDS: BOOST PLUS FOOD-CHOCLATE 237 ML BOX PO SCH (08:08)
[2017-01-20] MEDS: CITALOPRAM HYDROBROMIDE 20 MG TABLET PO SCH (08:08)
[2017-01-20] MEDS: RIFAXIMIN 200 MG TABLET PO SCH ×2 (08:09→12:47)
[2017-01-20] MEDS: VANCOMYCIN HCL 125 MG/2.5 ML ORAL.SUSP PO SCH ×2 (08:09→12:47)
[2017-01-20 08:51] LABS: ABG OXYGEN SATURATION 87.9 % (92.0-98.5); ABG PCO2 28.4 mmHg (35.0-45.0); ABG PH 7.169 (7.350-7.450); ABG PO2 67.2 mmHg (75.0-100.0); AaDO2 329.4 mmHg; COHb 0.1 % (0.5-1.5); MetHb 1.1 % (0.0-1.5); O2Hb 86.8 % (94.0-97.0); PEEP,BG 0 cm H2O; SITE, ABG Right Radial; VT, ABG 500 mL
--- NOTE | 2017-01-20 09:00 | NUR ---
PAINT STOCK CLERK NOTE DR. GARCIA ORDERED PICC LINE INSERTION DUE TO PT'S CRITICAL CONDITION AND NEED OF VASOPRESSORS. PT HAS NO FAMILY OR EMERGENCY CONTACT. PER DR. PALACIO WHO SPOKE WITH PT YESTERDAY. DR. GARCIA WILL ENTER A MEDICAL NEED NOTE IN HIS PROGRESS NOTE STATING THE NEED OF PICC LINE AT THIS TIME. KUSHAL GORDONREFRIGERATION MANAGER AND BIRGIT WHEELER AWARE AND INFORMED.
[2017-01-20] MEDS ORDERED: ETOMIDATE 2 MG/ML VIAL IV ONE (09:53)
[2017-01-20] MEDS ORDERED: ROCURONIUM BROMIDE 50 MG/5 ML IV ONE (09:53)
[2017-01-20] MEDS ORDERED: PANTOPRAZOLE 80 MG in IV NS 0.9% 500 ML IV PRN (10:00)
[2017-01-20] MEDS ORDERED: OCTREOTIDE 50 MCG in IV NS 0.9% 50 ML IV ONE (10:00)
[2017-01-20] MEDS ORDERED: PHYTONADIONE INJ 10 MG/1 ML AMPUL SQ ONE (10:30)
[2017-01-20 10:55] LABS: SERUM AMMONIA 44 umol/L (11-32)
[2017-01-20] MEDS: PANTOPRAZOLE 40 MG VIAL IV SCH ×2 (11:38→21:49)
[2017-01-20] MEDS: OCTREOTIDE 1,250 MCG in IV NS 0.9% 247.5 ML IV PRN (12:02)
[2017-01-20] MEDS: NEOMY SULF/BACITRAC ZN/POLY 15 GM TUBE TP SCH ×2 (12:05→16:51)
[2017-01-20] MEDS: Z GUARD REMEDY 2 OZ OINT TP SCH (12:06)
[2017-01-20] MEDS: NYSTATIN TOP POWDER 15 GM BOTTLE TP SCH (12:06)
--- NOTE | 2017-01-20 12:19 | NUR ---
MANAGER DIVERSITY NOTE DR. BOOTHE AT BEDSIDE UPDATED ON PT'S CONDITION AND IMPLEMENTED ORDERS. Addendum: 01/20/17 at 1523 by ADAIR PARADA RN MULTIPLE CALLS MADE TO PHARMACY REQUESTING VITAMIN k. NO VITAMIN K IN OMNICELL AND NOTHING IN PT'S CASSETTE.
[2017-01-20] MEDS ORDERED: ALBUMIN 25% 25 GM in PREMIX 1 EA IV SCH (12:30)
--- NOTE | 2017-01-20 12:34 | NUR ---
INR FOR PATIENT IS TOO HIGH FOR PARACENTESIS PER RADIOLOGIST. NOTIFIED RN LIAM TO LOWER IT TO PROCEED WITH PROCEDURE. SHE SAID SHE WILL NOTIFY THE FITTER UP.
[2017-01-20 13:24] LABS: EOSINOPHILS % (AUTO) 0.1 % (0.0-6.0); HEMATOCRIT 29 % (33-45); HEMOGLOBIN 9.2 g/dL (11.5-14.8); LYMPHOCYTES # (AUTO) 1.2 /CMM (0.8-4.8); LYMPHOCYTES % (AUTO) 2.7 % (20.0-44.0); MEAN CORPUSCULAR HEMOGLOBIN 34 PG (26.0-33.0); MEAN CORPUSCULAR HGB CONC 32 g/dl (31.0-36.0); MEAN CORPUSCULAR VOLUME 105 fL (82-100); MONOCYTES # (AUTO) 2.7 /CMM (0.1-1.30); MONOCYTES % (AUTO) 6.1 % (2.0-12.0); NEUTROPHILS # (AUTO) 39.9 /CMM (1.8-8.9); NEUTROPHILS % (AUTO) 91.1 % (43.0-81.0); PLATELET COUNT (AUTO) 270 /CMM (150-450); RDW COEFFICIENT OF VARIATION 16.2 (11.5-15.0); RED BLOOD CELL COUNT(AUTO) 2.75 MIL/uL (4.0-5.2)
[2017-01-20 13:28] LABS: WHITE BLOOD COUNT (AUTO) 43.8 K/uL (4.3-11.0)
--- NOTE | 2017-01-20 14:05 | NUR ---
I SPOKE WITH DR BOOTHE REGARDING INR 3, NEED FOR CONSENTS FOR PIC, BLOOD PRODUCTS AND ANY PROCEDURES INCLUDING PARACENTESIS THAT HE ORDERED THERE IS NO FAMILY FOR PT. ALSO SPOKE WITH MD REGARDING AMMONIA LEVEL OF 44-NO LACTULOSE PER MD. SPOKE TO MD REGARDING WBC 44OOO AND LACTIC ACID LEVELS > 4. NO NEW ORDERS
[2017-01-20 14:10] LABS: BAND % (MANUAL) 3 % (0.0-5.0); LYMPHOCYTES % (MANUAL) 5 % (16-48); MONOCYTES % (MANUAL) 8 % (0-11.0); NEUTROPHILS % (MANUAL) 84 (42-76)
--- NOTE | 2017-01-20 14:10 | NUR ---
SPOKE WITH DR PALACIO REGARDING NO ORDERS FOR FFP-I ORDERED 2 U FFP NOW. SUPERMARKET MANAGER AWARE THAT SHE MUST PUT INDICATIONS INTO [facility] FOR BLOOD PRODUCTS THERE ARE NO CONSENTS FOR SAME PT HAS NO FAMILY
--- NOTE | 2017-01-20 14:24 | NUR ---
BOTH FIDENCIO PALACIO AND TL ARE AWARE THAT EACH MUST PUT INDICATIONS INTO THE CHART REGARDING NEED FOR PARACENTESIS
[2017-01-20] MEDS: PROPOFOL 100 ML IV PRN ×2 (14:28→21:09)
[2017-01-20] MEDS ORDERED: FEE PK DOSING 1 MIN EA MC ONE (16:08)
[2017-01-20] MEDS: MEROPENEM 500 MG in IV NS 0.9% 50 ML IV SCH (18:16)
[2017-01-20] MEDS: VANCOMYCIN 0.75 GM in IV D5W 250 ML IV SCH (18:17)
--- NOTE | 2017-01-20 18:28 | NUR ---
ENDING NEWSCAST DIRECTOR NOTE PT REMAINS CRITICAL, INTUBATED, SEDATED. SR ON TELE. TOLERATING ORDERED VENT SETTINGS. POWERS DRAINING CONCENTRATED, TEA COLORED URINE. IV SITES REMAIN PATENT, C/I. IVF INFUSING. PT CONTINUES TO HAVE COFFEE GROUND EMESIS, SUCTIONED NEEDED. PT'S CARE WILL BE ENDORSED TO MUD GRINDER RN FOR CONTINUITY OF CARE.
--- NOTE | 2017-01-20 20:00 | NUR ---
MEAT CLERK. INITIAL ASSESSMENT. RECEIVED THE PT REST ON THE BED. ORALLY INTUBATED. SEDATED WITH DIPRIVAN. ETT 7.5CM,LIP 23CM,AC 20,TV 500,FIO2 80%. SAT 98%. REGISTERED NURSE OBSTETRICS SHOWING NSR. IV RT UPPER ARM PICC LINE LEVOPHED 12MCG/MIN,DIPRIVAN 20MCG/KG/MIN,NS 75ML/H,SANDOSTATIN 10.NPO. HOB ELEVATED. TAMELA SOFT WRIST RESTRAINT CHECKED AND RELEASED. NO INJURY OR REDNESS NOTED. FC PATENT. TURN AND REPOSITION Q2H. WILLTINUE TO MONITOR VITALS.
[2017-01-21] VITALS (101 sets, daily range): BP systolic 66–121; BP diastolic 36–81
[2017-01-21 01:55] LABS: BASOPHILS # (AUTO) 1.3 /CMM (0.0-0.2); BASOPHILS % (AUTO) 3.1 % (0.0-2.0); EOSINOPHILS # (AUTO) 0.5 /CMM (0.0-0.7); EOSINOPHILS % (AUTO) 1.1 % (0.0-6.0); HEMATOCRIT 22 % (33-45); HEMOGLOBIN 7.1 g/dL (11.5-14.8); LYMPHOCYTES # (AUTO) 2.4 /CMM (0.8-4.8); LYMPHOCYTES % (AUTO) 5.5 % (20.0-44.0); MEAN CORPUSCULAR HEMOGLOBIN 33 PG (26.0-33.0); MEAN CORPUSCULAR HGB CONC 33 g/dl (31.0-36.0); MEAN CORPUSCULAR VOLUME 103 fL (82-100); MONOCYTES # (AUTO) 2.7 /CMM (0.1-1.30); MONOCYTES % (AUTO) 6.2 % (2.0-12.0); NEUTROPHILS # (AUTO) 36.7 /CMM (1.8-8.9); NEUTROPHILS % (AUTO) 84.1 % (43.0-81.0); PLATELET COUNT (AUTO) 225 /CMM (150-450); RDW COEFFICIENT OF VARIATION 15.9 (11.5-15.0); RED BLOOD CELL COUNT(AUTO) 2.13 MIL/uL (4.0-5.2)
[2017-01-21 02:09] LABS: PROTHROMBIN TIME 22.4 SECS (9.5-12.7)
[2017-01-21 02:17] LABS: WHITE BLOOD COUNT (AUTO) 43.6 K/uL (4.3-11.0)
[2017-01-21 02:22] LABS: BAND % (MANUAL) 2 % (0.0-5.0); EOSINOPHILS % (MANUAL) 2 % (0-4); LYMPHOCYTES % (MANUAL) 6 % (16-48); MONOCYTES % (MANUAL) 2 % (0-11.0); MYELOCYTES % 1 % (0-0); NEUTROPHILS % (MANUAL) 87 (42-76)
[2017-01-21] MEDS: IV NS 0.9% 1,000 ML IV PRN ×2 (02:31→22:00)
--- NOTE | 2017-01-21 02:58 | NUR ---
PRESS CUTTER. AM CARE, ORAL CARE, BED BATH GIVEN. LINEN CHANGED. REMAINING SAME VENT SETTING TOLERATED WELL.SAT 98%. SENIOR UX DEVELOPER SHOWING NSR. OB ELEVATED. NPO. ETT LOW INTERMITTENT SUCTION. BLOOD DRAINING. CBC SEND. H&H 7.1. PAGED DR SANTOYO. WAITING FOR CALL BACK, IV RT UPPER ARM PICC LINE. INF NS 75ML/H, LEVOPHED 15MCG/MIN,, SANDOSTATIN 10ML/H. DIPRIVAN 20MCG/KG/MIN. TAMELA SOFT WRIST RESTRAINT CHECKED AND RELEASED. NO INJURY OR REDNESS NOTED. FC PATENT. OUT PUT IS VERY LOW.TEMPERATURE 96.7. WHOB ELEVATED. TURN AND REPOSITION Q2H. WILL CONTINUE TO MONITOR VITALS.
[2017-01-21] MEDS: NOREPINEPHRINE 16 MG in IV D5W 500 ML IV PRN ×2 (04:03→18:28)
[2017-01-21] MEDS: PROPOFOL 100 ML IV PRN ×3 (05:26→22:00)
[2017-01-21] MEDS: MEROPENEM 500 MG in IV NS 0.9% 50 ML IV SCH ×2 (06:08→17:21)
[2017-01-21] MEDS: METRONIDAZOLE 500MG/ NS 100ML 500 MG in PREMIX 1 EA IV SCH ×3 (06:08→21:30)
--- NOTE | 2017-01-21 06:33 | NUR ---
MANAGER INFORMATION. 2UNITS PRBC GIVEN. DURING TRANSFUSION NO COMPLICATION NOTED. WILL CONTINUE TO MONITOR VITALS.
[2017-01-21 07:40] LABS: BASOPHILS # (AUTO) 0.3 /CMM (0.0-0.2); BASOPHILS % (AUTO) 0.6 % (0.0-2.0); EOSINOPHILS # (AUTO) 0.4 /CMM (0.0-0.7); EOSINOPHILS % (AUTO) 0.8 % (0.0-6.0); HEMATOCRIT 34 % (33-45); HEMOGLOBIN 11.3 g/dL (11.5-14.8); LYMPHOCYTES # (AUTO) 1.2 /CMM (0.8-4.8); LYMPHOCYTES % (AUTO) 2.7 % (20.0-44.0); MEAN CORPUSCULAR HEMOGLOBIN 33 PG (26.0-33.0); MEAN CORPUSCULAR HGB CONC 33 g/dl (31.0-36.0); MEAN CORPUSCULAR VOLUME 98 fL (82-100); MONOCYTES # (AUTO) 2.3 /CMM (0.1-1.30); MONOCYTES % (AUTO) 5.3 % (2.0-12.0); NEUTROPHILS # (AUTO) 39.8 /CMM (1.8-8.9); NEUTROPHILS % (AUTO) 90.6 % (43.0-81.0); PLATELET COUNT (AUTO) 188 /CMM (150-450); RED BLOOD CELL COUNT(AUTO) 3.46 MIL/uL (4.0-5.2)
[2017-01-21 07:47] LABS: WHITE BLOOD COUNT (AUTO) 43.9 K/uL (4.3-11.0)
--- NOTE | 2017-01-21 08:04 | NUR ---
agricultural equipment sales manager received pt in bed sedated on propofol intubated settings noted pt moves to localized pain, pt is bleeding continuously from mouth unknown if its gi bleed or oral or esophagas bleed, no ng tube p/md, pt is sr on tele sbp stable on levophed, abd distended active bowels sounds, barbour present with only 60ml urine out p/material handler 1st shift rn Mabel, unable to turn the pt as she is unstable bleeding, noted air leaking from pressure cuff on et tube, notified Vantrini RT confurmed air is leaking as pt is not receiving volumes, wood stainer Luanne blanton will johnathon gordon possibly reintubate pt again. fall precautions taken restrains released checked for circulation and skin breakdown, will continue to monitor.
[2017-01-21 08:39] LABS: BAND % (MANUAL) 7 % (0.0-5.0); LYMPHOCYTES % (MANUAL) 5 % (16-48); MONOCYTES % (MANUAL) 4 % (0-11.0); NEUTROPHILS % (MANUAL) 84 (42-76)
[2017-01-21 08:51] LABS: CALCIUM, SERUM 7.9 mg/dL (8.5-10.1); POTASSIUM 4.3 mmol/L (3.5-5.1)
[2017-01-21 08:52] LABS: PHOSPHORUS 7.7 mg/dL (2.5-4.9)
[2017-01-21 08:53] LABS: ALBUMIN 2.6 g/dL (3.4-5.0); MAGNESIUM 1.7 mg/dL (1.8-2.4)
[2017-01-21] MEDS: THIAMINE HCL 100 MG TABLET PO SCH (09:00)
--- NOTE | 2017-01-21 09:30 | NUR ---
et tube changed by negin gordon due to busted et tube cuff. SUCCESSFUL ET TUBE CHANGED BY NEGIN GORDON WITH 7.5 ETT SECURED @ 22CM CENTER OF THE LIPS. CO2 DETECTOR CHANGED TO GOLD COLOR POST ET TUBE CHANGED. BREATH SOUNDS COURSE RHONCHI BILATERAL. Addendum: 01/21/17 at 1002 by JOSETTE LOZANO RT Amended: Links added.
[2017-01-21] MEDS: MICAFUNGIN SODIUM 100 MG in IV NS 0.9% 100 ML IV SCH (09:53)
[2017-01-21] MEDS: PANTOPRAZOLE 40 MG VIAL IV SCH ×2 (09:53→21:30)
[2017-01-21] MEDS: Z GUARD REMEDY 2 OZ OINT TP SCH (09:54)
[2017-01-21] MEDS: NYSTATIN TOP POWDER 15 GM BOTTLE TP SCH (09:54)
[2017-01-21] MEDS: NEOMY SULF/BACITRAC ZN/POLY 15 GM TUBE TP SCH ×2 (09:54→17:21)
[2017-01-21] MEDS ORDERED: SODIUM BICARBONATE SYR 50 MEQ/50 ML DISP.SYRIN IV STA (10:14)
[2017-01-21] MEDS ORDERED: SODIUM BICARBONATE SYR 100 MEQ in IV D5W 1,000 ML IV PRN (10:30)
[2017-01-21] MEDS ORDERED: FEE EMEERGENCY 1 MIN EA MC ONE (11:58)
[2017-01-21] MEDS ORDERED: SUCCINYLCHOLINE CHLORIDE 20 MG/ML VIAL IV ONE (11:58)
[2017-01-21 12:54] LABS: BASOPHILS # (AUTO) 0.4 /CMM (0.0-0.2); BASOPHILS % (AUTO) 1.1 % (0.0-2.0); EOSINOPHILS # (AUTO) 0.3 /CMM (0.0-0.7); EOSINOPHILS % (AUTO) 0.9 % (0.0-6.0); HEMATOCRIT 30 % (33-45); HEMOGLOBIN 10.1 g/dL (11.5-14.8); LYMPHOCYTES # (AUTO) 0.7 /CMM (0.8-4.8); LYMPHOCYTES % (AUTO) 2.2 % (20.0-44.0); MEAN CORPUSCULAR HEMOGLOBIN 33 PG (26.0-33.0); MEAN CORPUSCULAR HGB CONC 34 g/dl (31.0-36.0); MEAN CORPUSCULAR VOLUME 97 fL (82-100); MONOCYTES # (AUTO) 1.8 /CMM (0.1-1.30); MONOCYTES % (AUTO) 5.3 % (2.0-12.0); NEUTROPHILS # (AUTO) 30.5 /CMM (1.8-8.9); NEUTROPHILS % (AUTO) 90.5 % (43.0-81.0); PLATELET COUNT (AUTO) 151 /CMM (150-450); RDW COEFFICIENT OF VARIATION 17.9 (11.5-15.0); RED BLOOD CELL COUNT(AUTO) 3.11 MIL/uL (4.0-5.2)
[2017-01-21 12:57] LABS: WHITE BLOOD COUNT (AUTO) 33.7 K/uL (4.3-11.0)
[2017-01-21 12:59] LABS: ABG BASE EXCESS -11.7 mmol/L; ABG OXYGEN SATURATION 92.4 % (92.0-98.5); ABG PCO2 25.5 mmHg (35.0-45.0); ABG PH 7.321 (7.350-7.450); ABG PO2 71.3 mmHg (75.0-100.0); AaDO2 400.4 mmHg; COHb 0.3 % (0.5-1.5); MetHb 1.2 % (0.0-1.5); PEEP,BG 0 cm H2O; SITE, ABG Left Brachial; VT, ABG 500 mL
[2017-01-21 13:10] LABS: BAND % (MANUAL) 13 % (0.0-5.0); LYMPHOCYTES % (MANUAL) 5 % (16-48); MONOCYTES % (MANUAL) 1 % (0-11.0); NEUTROPHILS % (MANUAL) 81 (42-76)
[2017-01-21] MEDS: OCTREOTIDE 1,250 MCG in IV NS 0.9% 247.5 ML IV PRN (15:31)
[2017-01-21 18:36] LABS: HEMOGLOBIN 10.6 g/dL (11.5-14.8)
--- NOTE | 2017-01-21 18:39 | NUR ---
agricultural produce packer pt remain in bed not stable progress is still guarded, 2 units of ffp given, blood still discharging from mouth, provided oral car during all shift, vs remain stable on pressor, pt did wake up followed commands, ordered labs as blood pressure is not stable and bleeding, bed bath given w/ complete linen change, report given to pm nurse for continuity of care.
--- NOTE | 2017-01-21 19:18 | NUR ---
SUPERVISOR HARD CANDY. INITIAL ASSESSMENT, RECEIVED THE PT REST ON THE BED. ORALLY INTUBATED, ETT 7.5CM,LIP 22CMS,AC 20,TV 500,FIO2 70%. SAT 98%. PT IS UNSTABLE. LOCKSTITCH POCKET SETTER SHOWING NSR. IV RT UPPER ARM PICC LINE IVF NS 75ML/H,LEVOPHED 25MCG/MIN,DIPRIVAN 30MCG/KG/MIN,SANDOSTATIN 10ML/H. HOB ELEVATED. TURN AND REPOSITION Q2H. TAMELA SOFT WRIST RESTRAINT. CHECKED AND RELEASED. NO INJURY OR REDNESS NOTED. WILL CONTINUE TO MONITOR VITALS.
[2017-01-22] VITALS (104 sets, daily range): BP systolic 74–128; BP diastolic 28–92
[2017-01-22] MEDS: NOREPINEPHRINE 16 MG in IV D5W 500 ML IV PRN ×3 (01:56→17:54)
[2017-01-22] MEDS: METRONIDAZOLE 500MG/ NS 100ML 500 MG in PREMIX 1 EA IV SCH ×3 (05:00→20:16)
[2017-01-22 05:19] LABS: BASOPHILS # (AUTO) 0.1 /CMM (0.0-0.2); BASOPHILS % (AUTO) 0.3 % (0.0-2.0); EOSINOPHILS # (AUTO) 0.3 /CMM (0.0-0.7); EOSINOPHILS % (AUTO) 0.8 % (0.0-6.0); HEMATOCRIT 31 % (33-45); HEMOGLOBIN 10.5 g/dL (11.5-14.8); LYMPHOCYTES # (AUTO) 1.1 /CMM (0.8-4.8); LYMPHOCYTES % (AUTO) 3.1 % (20.0-44.0); MEAN CORPUSCULAR HEMOGLOBIN 33 PG (26.0-33.0); MEAN CORPUSCULAR HGB CONC 34 g/dl (31.0-36.0); MEAN CORPUSCULAR VOLUME 97 fL (82-100); MONOCYTES # (AUTO) 1.2 /CMM (0.1-1.30); MONOCYTES % (AUTO) 3.2 % (2.0-12.0); NEUTROPHILS # (AUTO) 33.4 /CMM (1.8-8.9); NEUTROPHILS % (AUTO) 92.6 % (43.0-81.0); PLATELET COUNT (AUTO) 139 /CMM (150-450); RDW COEFFICIENT OF VARIATION 18.5 (11.5-15.0); RED BLOOD CELL COUNT(AUTO) 3.18 MIL/uL (4.0-5.2)
[2017-01-22 05:32] LABS: ALBUMIN 2.4 g/dL (3.4-5.0); BILIRUBIN,TOTAL 6.5 mg/dL (0.2-1.0); CALCIUM, SERUM 7.8 mg/dL (8.5-10.1); CREATININE 3.9 mg/dL (0.6-1.3); MAGNESIUM 1.7 mg/dL (1.8-2.4); POTASSIUM 4.2 mmol/L (3.5-5.1)
[2017-01-22 05:41] LABS: PHOSPHORUS 8.5 mg/dL (2.5-4.9)
[2017-01-22] MEDS: MEROPENEM 500 MG in IV NS 0.9% 50 ML IV SCH ×2 (06:00→17:19)
[2017-01-22] MEDS: PROPOFOL 100 ML IV PRN (06:25)
--- NOTE | 2017-01-22 08:00 | NUR ---
CATHODIC PROTECTION TECHNICIAN; ASSESSMENT RECEIVED PT VENTED VIA ETT, SEE FLOW SHEET FOR VENT SETTINGS. PT CURRENTLY ON DIPRIVAN DRIP AT 30MCG/KG/MIN. WILL TITRATE FOR SEDATION VACATION. LEVOPHED AT 30MCG/MIN. TO KEEP SBP ABOVE 90. POWERS CATH INTACT WITH NO URINE OUTPUT. NOTED PT HYPOTHERMIC. WARMING MEASURES APPLIED. WILL CONTINUE WITH POC.
[2017-01-22] MEDS: THIAMINE HCL 100 MG TABLET PO SCH (09:00)
--- NOTE | 2017-01-22 09:00 | NUR ---
SCIENTIFIC PROCESS OPERATOR; SEDATION VACATION PT OFF OF DIPRIVAN. PT NON RESPONSIVE TO PAINFUL STIMULI. WILL MAINTAIN DIPRIVAN OFF, AND CONTINUE TO MONITOR NEURO STATUS.
[2017-01-22] MEDS: MICAFUNGIN SODIUM 100 MG in IV NS 0.9% 100 ML IV SCH (09:05)
[2017-01-22] MEDS: PANTOPRAZOLE 40 MG VIAL IV SCH ×2 (09:05→20:15)
[2017-01-22] MEDS: NYSTATIN TOP POWDER 15 GM BOTTLE TP SCH (09:07)
[2017-01-22] MEDS: NEOMY SULF/BACITRAC ZN/POLY 15 GM TUBE TP SCH ×2 (09:07→16:45)
[2017-01-22] MEDS: Z GUARD REMEDY 2 OZ OINT TP SCH (09:07)
[2017-01-22 09:17] LABS: ABG OXYGEN SATURATION 88.9 % (92.0-98.5); ABG PCO2 31.9 mmHg (35.0-45.0); ABG PH 7.144 (7.350-7.450); ABG PO2 70.3 mmHg (75.0-100.0); AaDO2 394.5 mmHg; COHb 0.3 % (0.5-1.5); O2Hb 87.7 % (94.0-97.0); PEEP,BG 5 cm H2O; SITE, ABG Right Radial; VT, ABG 500 mL
--- NOTE | 2017-01-22 09:26 | NUR ---
MEDICAL CASE MANAGER; CRITICAL LAB ABG DONE, SEE LAB RESULTS. DR. BOOTHE AT BEDSIDE NEW ORDERS ENTERED. DISCUSSED REGARDING PT LOW TEMP, HIGH DOSE OF LEVOPHED AND NON RESPONSIVE DURING SEDATION VACATION. NEW ORDERS GIVEN TO START VASOPRESSIN DRIP TO KEEP SBP GREATER THAN 90.
[2017-01-22] MEDS ORDERED: Sodium Bicarbonate 100 MEQ in IV D5/0.45 NACL 1,000 ML IV PRN (09:30)
[2017-01-22] MEDS ORDERED: VASOPRESSIN INJ 50 UNIT in IV D5W 497.5 ML IV PRN (09:30)
[2017-01-22 09:31] LABS: INR 2.32 (0.87-1.13); PROTHROMBIN TIME 26.2 SECS (9.5-12.7)
[2017-01-22 09:32] LABS: D-DIMER 6.18 mg/L(FEU (0.17-0.50)
[2017-01-22 09:44] LABS: BAND % (MANUAL) 13 % (0.0-5.0); LYMPHOCYTES % (MANUAL) 1 % (16-48); MONOCYTES % (MANUAL) 3 % (0-11.0); NEUTROPHILS % (MANUAL) 83 (42-76)
[2017-01-22] MEDS ORDERED: PHENYLEPHRINE 40 MG in IV D5W 250 ML IV PRN (10:00)
[2017-01-22] MEDS ORDERED: CITRIC ACID/SODIUM CITRATE (BICITRA)15 ML UDC GT PRN (10:30)
[2017-01-22] MEDS: Sodium Acetate 150 MEQ in IV D5W 1,000 ML IV PRN ×2 (11:06→20:16)
[2017-01-22] MEDS: OCTREOTIDE 1,250 MCG in IV NS 0.9% 247.5 ML IV PRN (14:10)
[2017-01-22] MEDS: HYDROCORTISONE SOD SUCCINATE 100 MG/2 ML VIAL IV SCH (16:45)
[2017-01-22] MEDS: VANCOMYCIN 0.75 GM in IV D5W 250 ML IV SCH (17:54)
[2017-01-23] VITALS (116 sets, daily range): BP systolic 60–134; BP diastolic 32–90
[2017-01-23] MEDS: Sodium Acetate 150 MEQ in IV D5W 1,000 ML IV PRN (01:30)
[2017-01-23] MEDS: NOREPINEPHRINE 16 MG in IV D5W 500 ML IV PRN ×3 (01:30→19:55)
[2017-01-23] MEDS: METRONIDAZOLE 500MG/ NS 100ML 500 MG in PREMIX 1 EA IV SCH ×3 (04:30→21:00)
[2017-01-23 04:53] LABS: CALCIUM, SERUM 7.1 mg/dL (8.5-10.1); CREATININE 3.9 mg/dL (0.6-1.3)
[2017-01-23] MEDS: MEROPENEM 500 MG in IV NS 0.9% 50 ML IV SCH ×2 (06:00→17:07)
[2017-01-23 07:37] LABS: HEMATOCRIT 29 % (33-45); HEMOGLOBIN 9.7 g/dL (11.5-14.8); LYMPHOCYTES # (AUTO) 0.5 /CMM (0.8-4.8); LYMPHOCYTES % (AUTO) 1.3 % (20.0-44.0); MEAN CORPUSCULAR HEMOGLOBIN 32 PG (26.0-33.0); MEAN CORPUSCULAR HGB CONC 33 g/dl (31.0-36.0); MEAN CORPUSCULAR VOLUME 97 fL (82-100); MONOCYTES # (AUTO) 0.9 /CMM (0.1-1.30); MONOCYTES % (AUTO) 2.3 % (2.0-12.0); NEUTROPHILS # (AUTO) 36.4 /CMM (1.8-8.9); NEUTROPHILS % (AUTO) 96.4 % (43.0-81.0); PLATELET COUNT (AUTO) 110 /CMM (150-450); RDW COEFFICIENT OF VARIATION 18.3 (11.5-15.0); RED BLOOD CELL COUNT(AUTO) 2.99 MIL/uL (4.0-5.2)
[2017-01-23 07:40] LABS: WHITE BLOOD COUNT (AUTO) 37.7 K/uL (4.3-11.0)
[2017-01-23] MEDS: HYDROCORTISONE SOD SUCCINATE 100 MG/2 ML VIAL IV SCH ×3 (08:19→17:06)
[2017-01-23] MEDS: PANTOPRAZOLE 40 MG VIAL IV SCH ×2 (08:19→21:00)
[2017-01-23] MEDS: MICAFUNGIN SODIUM 100 MG in IV NS 0.9% 100 ML IV SCH (08:20)
[2017-01-23] MEDS: NEOMY SULF/BACITRAC ZN/POLY 15 GM TUBE TP SCH ×2 (08:20→17:07)
[2017-01-23] MEDS: NYSTATIN TOP POWDER 15 GM BOTTLE TP SCH (08:20)
[2017-01-23] MEDS: Z GUARD REMEDY 2 OZ OINT TP SCH (08:21)
[2017-01-23 09:00] LABS: ABG BASE EXCESS -7.9 mmol/L; ABG OXYGEN SATURATION 90.6 % (92.0-98.5); ABG PCO2 29.3 mmHg (35.0-45.0); ABG PH 7.365 (7.350-7.450); ABG PO2 66.7 mmHg (75.0-100.0); COHb 0.3 % (0.5-1.5); MetHb 0.8 % (0.0-1.5); O2Hb 89.6 % (94.0-97.0); SITE, ABG Right Radial; VENT MODE, BG AC 30 500 100% +5
[2017-01-23] MEDS: THIAMINE HCL 100 MG TABLET PO SCH (09:00)
[2017-01-23 09:20] LABS: BAND % (MANUAL) 10 % (0.0-5.0); LYMPHOCYTES % (MANUAL) 2 % (16-48); NEUTROPHILS % (MANUAL) 86 (42-76)
[2017-01-23 09:21] LABS: MONOCYTES % (MANUAL) 2 % (0-11.0)
[2017-01-23] MEDS ORDERED: IV NS 0.9% 1,000 ML BAG IV PRN (10:00)
[2017-01-23] MEDS: IV NS 0.9% 1,000 ML IV PRN (10:38)
--- NOTE | 2017-01-23 12:30 | NUR ---
BREAKER LAYER; GI NG TUBE PLACED TO LEFT NARE PER DR. LOBATO ORDERS. PLACEMENT VERIFIED BY CHARGE NURSE Magen ADAM RN. POSITIVE FOR AUSCULTATION AND ASPIRATION.
[2017-01-23] MEDS: OCTREOTIDE 1,250 MCG in IV NS 0.9% 247.5 ML IV PRN (14:37)
[2017-01-23] MEDS: MORPHINE SULFATE INJ 4 MG/ML DISP.SYRIN IV PRN (15:25)
[2017-01-23] MEDS: LACTULOSE 10 G/15 ML UDC (PYXIS) PO SCH ×2 (17:07→23:50)
[2017-01-24] VITALS (102 sets, daily range): BP systolic 71–141; BP diastolic 36–99
[2017-01-24] MEDS: IV NS 0.9% 1,000 ML IV PRN ×2 (03:04→21:06)
[2017-01-24] MEDS: NOREPINEPHRINE 16 MG in IV D5W 500 ML IV PRN ×3 (03:06→22:00)
[2017-01-24] MEDS: METRONIDAZOLE 500MG/ NS 100ML 500 MG in PREMIX 1 EA IV SCH ×3 (04:30→21:11)
[2017-01-24 05:11] LABS: HEMATOCRIT 33 % (33-45); HEMOGLOBIN 11.1 g/dL (11.5-14.8); LYMPHOCYTES % (AUTO) 3.6 % (20.0-44.0); MEAN CORPUSCULAR HEMOGLOBIN 33 PG (26.0-33.0); MEAN CORPUSCULAR HGB CONC 34 g/dl (31.0-36.0); MEAN CORPUSCULAR VOLUME 97 fL (82-100); MONOCYTES # (AUTO) 0.7 /CMM (0.1-1.30); MONOCYTES % (AUTO) 1.3 % (2.0-12.0); NEUTROPHILS # (AUTO) 52.5 /CMM (1.8-8.9); NEUTROPHILS % (AUTO) 95.1 % (43.0-81.0); PLATELET COUNT (AUTO) 103 /CMM (150-450); RDW COEFFICIENT OF VARIATION 17.5 (11.5-15.0); RED BLOOD CELL COUNT(AUTO) 3.36 MIL/uL (4.0-5.2)
[2017-01-24 05:23] LABS: WHITE BLOOD COUNT (AUTO) 55.2 K/uL (4.3-11.0)
[2017-01-24] MEDS: MEROPENEM 500 MG in IV NS 0.9% 50 ML IV SCH ×2 (05:32→18:19)
[2017-01-24] MEDS: LACTULOSE 10 G/15 ML UDC (PYXIS) PO SCH ×4 (05:33→23:56)
[2017-01-24 05:35] LABS: CALCIUM, SERUM 7.2 mg/dL (8.5-10.1); CREATININE 4.1 mg/dL (0.6-1.3); POTASSIUM 4.6 mmol/L (3.5-5.1)
[2017-01-24 05:51] LABS: BAND % (MANUAL) 18 % (0.0-5.0); LYMPHOCYTES % (MANUAL) 1 % (16-48); MONOCYTES % (MANUAL) 3 % (0-11.0); NEUTROPHILS % (MANUAL) 78 (42-76)
[2017-01-24 05:58] LABS: INR 3.62 (0.87-1.13)
[2017-01-24 06:05] LABS: D-DIMER 8.36 mg/L(FEU (0.17-0.50)
[2017-01-24 07:10] LABS: BILIRUBIN,DIRECT 7.6 mg/dL (0.0-0.2)
[2017-01-24] MEDS: NYSTATIN TOP POWDER 15 GM BOTTLE TP SCH (08:12)
[2017-01-24] MEDS: NEOMY SULF/BACITRAC ZN/POLY 15 GM TUBE TP SCH ×2 (08:12→17:19)
[2017-01-24] MEDS: HYDROCORTISONE SOD SUCCINATE 100 MG/2 ML VIAL IV SCH ×3 (08:12→17:14)
[2017-01-24] MEDS: PANTOPRAZOLE 40 MG VIAL IV SCH ×2 (08:12→21:11)
[2017-01-24] MEDS: THIAMINE HCL 100 MG TABLET PO SCH (08:12)
[2017-01-24] MEDS: Z GUARD REMEDY 2 OZ OINT TP SCH (08:13)
[2017-01-24] MEDS: MICAFUNGIN SODIUM 100 MG in IV NS 0.9% 100 ML IV SCH (08:14)
--- NOTE | 2017-01-24 10:35 | NUR ---
LEAD PORTFOLIO MANAGER NOTE 0720: Received patient obtunded. With ETT to vent, tolerated settings at this time. With left NGT intact, clamped. With Jimenez cath intact, no UOP noted. With KARYN PICC intact. On Levophed @ 34mcg, will titrate as ordered. SBP >90's at this time. SR 90's on the monitor. Also on NS @ 75 and John @ 10mls. No active bleeding noted at this time. 1035: S/E by Dr. Galvan, no new order at this time.
--- NOTE | 2017-01-24 13:36 | NUR ---
STEVEN contacted [facility] staff Jt to inquire if pt. has any family. According to Jt, pt. lives alone and has no family. Pt. does have a sister but pt. never gave the contact number to the staff at [facility] . Jt informed SW he will check with the nurses and follow up with SW if there is any contact information for the sister.
[2017-01-24] MEDS: OCTREOTIDE 1,250 MCG in IV NS 0.9% 247.5 ML IV PRN (15:04)
[2017-01-24] MEDS: VANCOMYCIN 0.75 GM in IV D5W 250 ML IV SCH (17:15)
--- NOTE | 2017-01-24 20:00 | NUR ---
Received patient from previous shift obtunded intubated to vent on AC mode.Vent settings well tolerated.Patient with copious secretions both orally and via ETT.Suctioned secretions PRN.Oral care done. SR.Patient on Levophed drip infusing at 20 mcg/min will titrate accordingly to keep SBP > 90.Left nares NGT clamped.IVF NS and Sandostatin drip infusing via KARYN PICC line. Site intact.No active bleeding noted.FC in place oliguric.No signs of pain noted.Turned and repositioned.
[2017-01-25] VITALS (94 sets, daily range): BP systolic 54–118; BP diastolic 27–89
[2017-01-25] MEDS: METRONIDAZOLE 500MG/ NS 100ML 500 MG in PREMIX 1 EA IV SCH ×3 (05:07→20:49)
[2017-01-25] MEDS: LACTULOSE 10 G/15 ML UDC (PYXIS) PO SCH ×3 (05:30→17:05)
[2017-01-25] MEDS: MEROPENEM 500 MG in IV NS 0.9% 50 ML IV SCH ×2 (06:03→17:06)
[2017-01-25 06:04] LABS: HEMATOCRIT 33 % (33-45); HEMOGLOBIN 10.9 g/dL (11.5-14.8); LYMPHOCYTES % (AUTO) 2.3 % (20.0-44.0); MEAN CORPUSCULAR HEMOGLOBIN 33 PG (26.0-33.0); MEAN CORPUSCULAR HGB CONC 33 g/dl (31.0-36.0); MEAN CORPUSCULAR VOLUME 98 fL (82-100); MONOCYTES # (AUTO) 0.4 /CMM (0.1-1.30); MONOCYTES % (AUTO) 0.9 % (2.0-12.0); NEUTROPHILS % (AUTO) 96.8 % (43.0-81.0); PLATELET COUNT (AUTO) 81 /CMM (150-450); RDW COEFFICIENT OF VARIATION 17.9 (11.5-15.0); RED BLOOD CELL COUNT(AUTO) 3.34 MIL/uL (4.0-5.2)
[2017-01-25 06:21] LABS: WHITE BLOOD COUNT (AUTO) 45.4 K/uL (4.3-11.0)
[2017-01-25 06:22] LABS: CALCIUM, SERUM 7.3 mg/dL (8.5-10.1); CREATININE 4.3 mg/dL (0.6-1.3); POTASSIUM 4.5 mmol/L (3.5-5.1)
[2017-01-25 06:33] LABS: D-DIMER 7.17 mg/L(FEU (0.17-0.50)
[2017-01-25 06:35] LABS: INR 4.34 (0.87-1.13)
[2017-01-25 06:39] LABS: BAND % (MANUAL) 11 % (0.0-5.0); LYMPHOCYTES % (MANUAL) 1 % (16-48); NEUTROPHILS % (MANUAL) 88 (42-76)
--- NOTE | 2017-01-25 06:47 | NUR ---
Patient remains obtunded.Hypothermic 95.2 ,95.9 temporal.Warm blanket and BERR HUGGER applied.Latest temp 96.1.SR.Levophed infusing at 16 mcg.All IV's infusing well.No acute distress noted.AM care done.All due medications administered.Turned and repositioned.
--- NOTE | 2017-01-25 07:18 | NUR ---
AM labs resulted.WBC 45.4,PTT 106,INR 4.34 called to .No new orders received.
[2017-01-25] MEDS: THIAMINE HCL 100 MG TABLET PO SCH (08:33)
[2017-01-25] MEDS: MICAFUNGIN SODIUM 100 MG in IV NS 0.9% 100 ML IV SCH (08:33)
[2017-01-25] MEDS: HYDROCORTISONE SOD SUCCINATE 100 MG/2 ML VIAL IV SCH ×3 (08:33→17:05)
[2017-01-25] MEDS: PANTOPRAZOLE 40 MG VIAL IV SCH ×2 (08:33→20:49)
[2017-01-25] MEDS: NEOMY SULF/BACITRAC ZN/POLY 15 GM TUBE TP SCH ×2 (08:34→17:06)
[2017-01-25] MEDS: Z GUARD REMEDY 2 OZ OINT TP SCH (08:34)
[2017-01-25] MEDS: NYSTATIN TOP POWDER 15 GM BOTTLE TP SCH (08:35)
--- NOTE | 2017-01-25 10:00 | NUR ---
PYTHON ARCHITECT NOTE 6820: Received patient obtunded. With ETT to vent, 3%O2 sat. With NGT intact. With KARYN PICC intact on Levo @ 18, will titrate as ordered. SBP on 90's. Noted temp 94.9, on anna marie hugger. SR 90's on the monitor. 0930: S/E by Dr. Sanders, ordered ABG. 0950: S/E by Dr. Edwards, with order to start on GT feeding and DC John drip. Awaiting dietary consult.
[2017-01-25 10:24] LABS: ABG BASE EXCESS -20.2 mmol/L; ABG OXYGEN SATURATION 93.8 % (92.0-98.5); ABG PCO2 21.4 mmHg (35.0-45.0); ABG PH 7.138 (7.350-7.450); ABG PO2 90.4 mmHg (75.0-100.0); AaDO2 457.5 mmHg; COHb 0.3 % (0.5-1.5); MetHb 1.1 % (0.0-1.5); O2Hb 92.5 % (94.0-97.0); SITE, ABG Right Radial; VENT MODE, BG AC 30 500 80% +5
[2017-01-25] MEDS ORDERED: SODIUM BICARBONATE SYR 50 MEQ/50 ML DISP.SYRIN IV ONE (10:30)
--- NOTE | 2017-01-25 10:38 | NUR ---
BURLESQUE DANCER NOTE ABG done, Dr. Sanders in the unit ordered 2 amps of Na Bicarb, given.
[2017-01-25] MEDS: NOREPINEPHRINE 16 MG in IV D5W 500 ML IV PRN ×2 (12:14→18:31)
[2017-01-25] MEDS ORDERED: PHENYLEPHRINE 40 MG in IV D5W 250 ML IV PRN (13:00)
[2017-01-25] MEDS ORDERED: RENAL NOVASOURCE 1,000 ML BOTTLE GT PRN (13:30)
[2017-01-25] MEDS ORDERED: IV NS 0.9% 1,000 ML IV STA (13:54)
[2017-01-25] MEDS: VASOPRESSIN INJ 50 UNIT in IV D5W 497.5 ML IV PRN (15:02)
[2017-01-25] MEDS: PHENYLEPHRINE 80 MG in IV D5W 250 ML IV PRN ×3 (15:28→23:57)
--- NOTE | 2017-01-25 15:42 | NUR ---
DIECAST MACHINE OPERATOR NOTE 1300: S/E by Dr. Miramontes, SBP 70, titrating Levo higher dose, followed up with pharmacy re: Kishore bag to start as needed. 1320: Started on Kishore 100mcg, will titrate as ordered. 1500: Started on Vaso 0.04units for SBP still on 70's. 1540: Patient on 3 pressors, SBP 80's. Kept on supine for now, feeding still not started due to patient needed flat for now for low BP.
--- NOTE | 2017-01-25 15:56 | NUR ---
SW contacted missing persons and spoke with Bed And Breakfast Operator Cates to inquire if pt. has been reported missing by any family. Bed And Breakfast Operator Cates informed SW that there is no missing persons reported on pt.
[2017-01-25] MEDS: IV NS 0.9% 1,000 ML IV PRN (17:13)
[2017-01-25] MEDS ORDERED: Sodium Acetate 100 MEQ in IV D5W 1,000 ML IV PRN (17:30)
[2017-01-25] MEDS ORDERED: IV NS 0.9% 1,000 ML IV PRN (18:30)
--- NOTE | 2017-01-25 18:36 | NUR ---
ELECTRICAL MAINTENANCE ENGINEER NOTE Spoke with Dr. Copeland via phone and made aware, unable to provide Sodium acetate IVF and agreed to change to Bicitra /GT QID, made pharmacy aware.
[2017-01-25] MEDS: CITRIC ACID/SODIUM CITRATE (BICITRA)15 ML UDC PO SCH (18:46)
--- NOTE | 2017-01-25 19:30 | NUR ---
MACHINE PAN GREASER INITIAL NOTE RECEIVED REPORT FROM BILLY DORAN. PT IN BED, INTUBATED AND OBTUNDED. LUNG SOUNDS COURSE RHONCHI. ITUBATED WITH ET 7.5 LIP 22CM. BOWEL SOUNDS HYPOACTIVE, ABDOMEN IS HARD AND DISTENDED DUE TO ASCITES. LEFT NARE NG WITH 260CC RESDIUAL. PT CURRENT RECTAL TEMP 96.[address] ANURIC AT THIS TIME. IV LEFT EJ 20G AND RIGHT UPPER PICC WITH NS AT 75CC/HR, SHEILA@300, LEVO @40, VASO AT 0.04. MAINTAIN SBP >90. MULTIPLE SKIN ISSUES. FRIEND RAIN WANTS TO BE CONTACTED WITH ANY CHANGES AT [phone]. BED IN LOW LOCKED POSITION. WILL CONTINUE TO MONITOR.
--- NOTE | 2017-01-25 20:20 | NUR ---
FARMWORKER FUR DR SANTILLAN CALLED AT 1999, AWAITING CALL BACK. DR MCNALLY CALLED DUE TO PTS CONDITION. PT BP IS LOW 60/70'S. ORDER FOR 1L BOLUS ORDERED WITH PARAMETERS IF SBP NOT GREATER THAN 80, OKAY TO START DOPAMINE WITH PARAMETERS TO KEEP SBP >80. ORDERS CARRIED OUT. WILL CONTINUE TO MONITOR. HEPARIN WILL ALSO BE HELD DUE TO BLOODY SECRETIONS.
[2017-01-25] MEDS ORDERED: IV NS 0.9% 1,000 ML IV ONE (20:30)
[2017-01-25] MEDS ORDERED: DOPamine 400 MG/D5W 250 ML RTU PIGGYBACK IV PRN (20:30)
[2017-01-26] VITALS (119 sets, daily range): BP systolic 29–148; BP diastolic 17–103
--- NOTE | 2017-01-26 00:04 | NUR ---
TRANSVERSE ABDOMINAL MUSCLE SURGEON HELD LACTULOSE DUE TO HIGH RESIDUAL
[2017-01-26] MEDS: NOREPINEPHRINE 16 MG in IV D5W 500 ML IV PRN ×4 (01:12→20:51)
[2017-01-26] MEDS ORDERED: DOPamine 400MG/D5W 250ML RTU 250 ML IV ONE ×2 (04:10→07:34)
[2017-01-26] MEDS: PHENYLEPHRINE 80 MG in IV D5W 250 ML IV PRN ×5 (04:15→21:02)
[2017-01-26] MEDS: DOPamine 400 MG in IV D5W 250 ML IV PRN ×4 (04:19→15:39)
--- NOTE | 2017-01-26 04:19 | NUR ---
UNDERCOATER LACHO BARCODE DONE. BAR CODE NOT SCANNING.
[2017-01-26] MEDS: METRONIDAZOLE 500MG/ NS 100ML 500 MG in PREMIX 1 EA IV SCH ×3 (04:49→20:51)
[2017-01-26 05:04] LABS: CALCIUM, SERUM 6.7 mg/dL (8.5-10.1); POTASSIUM 4.9 mmol/L (3.5-5.1)
[2017-01-26] MEDS: LACTULOSE 10 G/15 ML UDC (PYXIS) PO SCH ×5 (05:16→23:58)
[2017-01-26] MEDS: MEROPENEM 500 MG in IV NS 0.9% 50 ML IV SCH ×2 (05:27→18:05)
--- NOTE | 2017-01-26 08:00 | NUR ---
Patient unresponsive, on 4 pressors (see iv spreadsheet) remain hypotensive. Absent cough and gag reflex. fixed pupils, nonreponsive to light. Noted blood pooling in her mouth, pending coag. hypothermic on anna marie hugger to keep normothermic. Already anuric. No family only friend on record. Pending Bioethics meeting.
[2017-01-26] MEDS: THIAMINE HCL 100 MG TABLET PO SCH (08:33)
[2017-01-26] MEDS: CITRIC ACID/SODIUM CITRATE (BICITRA)15 ML UDC PO SCH ×5 (08:33→21:00)
--- NOTE | 2017-01-26 08:34 | NUR ---
Held PO and NGT medications
[2017-01-26] MEDS: PANTOPRAZOLE 40 MG VIAL IV SCH ×2 (08:37→20:51)
[2017-01-26] MEDS: HYDROCORTISONE SOD SUCCINATE 100 MG/2 ML VIAL IV SCH ×3 (08:37→17:18)
[2017-01-26] MEDS: MICAFUNGIN SODIUM 100 MG in IV NS 0.9% 100 ML IV SCH (08:37)
[2017-01-26] MEDS: NYSTATIN TOP POWDER 15 GM BOTTLE TP SCH (08:38)
[2017-01-26] MEDS: NEOMY SULF/BACITRAC ZN/POLY 15 GM TUBE TP SCH ×2 (08:38→17:19)
[2017-01-26] MEDS: Z GUARD REMEDY 2 OZ OINT TP SCH (08:38)
[2017-01-26] MEDS ORDERED: CITRIC ACID/SODIUM CITRATE (BICITRA)15 ML UDC PO SCH (09:00)
--- NOTE | 2017-01-26 09:26 | NUR ---
PT REC'D INTUBATED VIA 7.5 ETT @22 CM AT THE LIP. VENT SETTINGS PER PULMONARY. VENT ALARMS CHECKED AND AUDIBLE PER POLICY. VENT PLUGGED INTO RED OUTLET. WILL CONTINUE TO MONITOR PT. DOROTHEA BAG AT HOB. Addendum: 01/26/17 at 0935 by VIELKA COTTER RT Amended: Links added.
[2017-01-26 10:05] LABS: PROTHROMBIN TIME 58.7 SECS (9.5-12.7)
[2017-01-26 10:06] LABS: INR 4.95 (0.87-1.13)
--- NOTE | 2017-01-26 10:15 | NUR ---
Called Dr. Alvarado (Heme/Onc) for critical coagulation INR 4.75, noted bleeding from the mouth (packed with gauze from previous shift, reinforced). Made aware of vitals signs and maxed on 4 pressors. Readback order of 4 FFP and vitamin k 10mg subQ.
[2017-01-26] MEDS: VASOPRESSIN INJ 50 UNIT in IV D5W 497.5 ML IV PRN (10:17)
[2017-01-26] MEDS ORDERED: PHYTONADIONE INJ 10 MG/1 ML AMPUL SQ ONE (10:30)
[2017-01-26 10:51] LABS: BASOPHILS % (AUTO) 0.1 % (0.0-2.0); EOSINOPHILS % (AUTO) 0.1 % (0.0-6.0); HEMATOCRIT 28 % (33-45); HEMOGLOBIN 8.8 g/dL (11.5-14.8); LYMPHOCYTES # (AUTO) 1.6 /CMM (0.8-4.8); LYMPHOCYTES % (AUTO) 4.2 % (20.0-44.0); MEAN CORPUSCULAR HEMOGLOBIN 32 PG (26.0-33.0); MEAN CORPUSCULAR HGB CONC 32 g/dl (31.0-36.0); MEAN CORPUSCULAR VOLUME 101 fL (82-100); MONOCYTES # (AUTO) 0.6 /CMM (0.1-1.30); MONOCYTES % (AUTO) 1.7 % (2.0-12.0); NEUTROPHILS % (AUTO) 93.9 % (43.0-81.0); PLATELET COUNT (AUTO) 54 /CMM (150-450); RDW COEFFICIENT OF VARIATION 18.1 (11.5-15.0); RED BLOOD CELL COUNT(AUTO) 2.74 MIL/uL (4.0-5.2)
--- NOTE | 2017-01-26 10:52 | NUR ---
STEVEN contacted the Public Guardian's office to inquire if pt. has a conservator. STEVEN spoke with Erika at the public guardian's office who informed SW that pt. does not have a conservator. STEVEN called CAROLINA Stroud and informed her that pt. does not have a conservator.
[2017-01-26 10:57] LABS: WHITE BLOOD COUNT (AUTO) 38.4 K/uL (4.3-11.0)
--- NOTE | 2017-01-26 11:49 | NUR ---
Patient transferred to MS 119-1 on stable condition. VSS, sleeping but arousable, denies any pain. See datascope vitals. Report given to Alexi DORAN Addendum: 01/26/17 at 1151 by VAL SHANNON RN Please disregard, wrong patient
--- NOTE | 2017-01-26 12:00 | NUR ---
called and informed Dr. Alvarado of platelet 51 and Fibrinogen as 101 with active bleeding on the face, nose and mouth. Packing reinforced.
[2017-01-26 12:06] LABS: BAND % (MANUAL) 16 % (0.0-5.0); LYMPHOCYTES % (MANUAL) 9 % (16-48); MONOCYTES % (MANUAL) 2 % (0-11.0); NEUTROPHILS % (MANUAL) 73 (42-76)
--- NOTE | 2017-01-26 12:16 | NUR ---
PARACENTESIS ON HOLD INR HIGH
[2017-01-26] MEDS ORDERED: FUROSEMIDE 40 MG/4 ML VIAL IV ONE (14:30)
[2017-01-26] MEDS ORDERED: ALBUMIN 25% 25 GM in PREMIX 1 EA IV SCH (14:30)
--- NOTE | 2017-01-26 17:13 | NUR ---
ICU/RN PT IS IN THE VERY CRITICAL CONDITION ON 4 PRESSORS MAXIMUM ,NON RESPONSIVE.INTUBATED ON THE VENT FIO2-100%,SAT O2-20%, ORAL AND NOSE BLEEDING 4 FFP GIVEN ANURIC,MULTI ORGANS FAILURE. NOTIFIED .TRY TO FIND ANY FAMILY. CALLED TO [phone].-HER FRIEND RAIN . SHE SAID : SHE HAS NO FAMILY,NO CONSERVATORS .NO ONE WHO CAN MAKE DECISION FOR HER. CONTINUE MONITORING.
[2017-01-26] MEDS: VANCOMYCIN 0.75 GM in IV D5W 250 ML IV SCH (17:18)
[2017-01-26] MEDS: DOPamine 800 MG in IV D5W 250 ML IV PRN ×2 (18:06→23:03)
[2017-01-26 18:50] LABS: INR 1.87 (0.87-1.13); PROTHROMBIN TIME 20.8 SECS (9.5-12.7)
[2017-01-26 19:10] LABS: BASOPHILS % (AUTO) 0.1 % (0.0-2.0); EOSINOPHILS # (AUTO) 0.1 /CMM (0.0-0.7); EOSINOPHILS % (AUTO) 0.4 % (0.0-6.0); HEMATOCRIT 22 % (33-45); LYMPHOCYTES # (AUTO) 1.9 /CMM (0.8-4.8); LYMPHOCYTES % (AUTO) 6.8 % (20.0-44.0); MEAN CORPUSCULAR HEMOGLOBIN 33 PG (26.0-33.0); MEAN CORPUSCULAR HGB CONC 31 g/dl (31.0-36.0); MEAN CORPUSCULAR VOLUME 104 fL (82-100); MONOCYTES # (AUTO) 0.4 /CMM (0.1-1.30); MONOCYTES % (AUTO) 1.3 % (2.0-12.0); NEUTROPHILS # (AUTO) 25.3 /CMM (1.8-8.9); NEUTROPHILS % (AUTO) 91.4 % (43.0-81.0); RDW COEFFICIENT OF VARIATION 18.5 (11.5-15.0); RED BLOOD CELL COUNT(AUTO) 2.07 MIL/uL (4.0-5.2); WHITE BLOOD COUNT (AUTO) 27.7 K/uL (4.3-11.0)
--- NOTE | 2017-01-26 19:15 | NUR ---
RAIL CREW MEMBER INITIAL NOTE RECEIVED REPORT FROM ADAM. PT IN BED, INTUBATED AND OBTUNDED. NOT RESPONSIVE, NO SEDATION. LUNG SOUNDS COARSE RHONCHI. GENERALIZED PITTING EDEMA WITH ANASARCA. BOWEL SOUNDS HYPOACTIVE. POWERS INTACT WITHOUT DRAINAGE. PULSES DIFFICULT TO PALPATE. PT IS MAXED OUT ON 4 PRESSORS, LEVOPHED, VASOPRESSOR, DOPAMINE, SHEILA. PT WILL BE RECEIVING BLOOD PRODUCTS. pT MOUTH IS BLEEDING, PACKING INTACT TO ABSORB THE BLOOD. BED IN LOW LOCKED POSITION. WILL CONTINUE TO MONITOR.
--- NOTE | 2017-01-26 19:24 | NUR ---
RT PT RECEIVED INTUBATED W/ A 7.5 EET @ 24 CM LIP ON MECH VENT WITH NOTED SETTINGS. SX LARGE AMOUNT OF JOSH RED SECRETIONS ORALLY, RN AWARE. VENT PLUGGED IN TO RED OUTLET. ETT PATENT AND SECURE VIA ANCHOR FAST. CLINICAL EDUCATION MANAGER DONE. AMBU BAG AT [facility]. ALARMS SET AND AUDIBLE. DISCONNECT ALARM VERIFIED. WILL CONTINUE TO MONITOR. Addendum: 01/26/17 at 1930 by HAILEY RAMOS RT Amended: Links added.
--- NOTE | 2017-01-26 19:30 | NUR ---
SUPERVISOR PRINTING AND STAMPING PT IS INTUBATED PER RT ETT IS 24CM AT THE LIP. PT IS CURRENTLY RECEIVING VOLUME FROM VENTILATOR.
[2017-01-26 19:43] LABS: HEMOGLOBIN 6.7 g/dL (11.5-14.8)
[2017-01-26 19:44] LABS: PLATELET COUNT (AUTO) 16 /CMM (150-450)
--- NOTE | 2017-01-26 19:45 | NUR ---
RECRUITING ASSOCIATE LAB CALLED WITH CRITICAL VALUES, HGB 6.[address] PALACIO NOTIFIED. ORDERS RECEIVED AND INPUT. WILL CONTINUE TO MONITOR.
[2017-01-26 19:48] LABS: BAND % (MANUAL) 22 % (0.0-5.0); LYMPHOCYTES % (MANUAL) 19 % (16-48); MONOCYTES % (MANUAL) 11 % (0-11.0); MYELOCYTES % 1 % (0-0); NEUTROPHILS % (MANUAL) 47 (42-76)
--- NOTE | 2017-01-26 21:09 | NUR ---
HELICOPTER PILOT INSTRUCTOR NON ADMIN DID NOT ADMIN BICITRATE DUE TO HIGH RESIDUALS
[2017-01-27] VITALS (65 sets, daily range): BP systolic 33–193; BP diastolic 13–99
--- NOTE | 2017-01-27 00:47 | NUR ---
FABRIC MACHINE OPERATOR LEFT NARE NGT OUT DUE TO EXCESSIVE BLEEDING. PT CONTINUES TO RECEIVE BLOOD PRODUCTS. WILL CONTINUE TO MONITOR.
[2017-01-27] MEDS: PHENYLEPHRINE 80 MG in IV D5W 250 ML IV PRN ×3 (01:05→09:12)
[2017-01-27] MEDS: NOREPINEPHRINE 16 MG in IV D5W 500 ML IV PRN ×2 (03:18→09:29)
[2017-01-27] MEDS: DOPamine 800 MG in IV D5W 250 ML IV PRN ×2 (04:04→08:43)
[2017-01-27] MEDS: METRONIDAZOLE 500MG/ NS 100ML 500 MG in PREMIX 1 EA IV SCH ×2 (04:10→13:00)
[2017-01-27] MEDS ORDERED: PHENYLEPHRINE 10 MG/ML VIAL ONE (04:19)
--- NOTE | 2017-01-27 04:29 | NUR ---
COCONUT CANDY MAKER NON ADMIN NON ADMIN DUE TO PT SAFETY.
[2017-01-27 04:57] LABS: BASOPHILS # (AUTO) 0.1 /CMM (0.0-0.2); BASOPHILS % (AUTO) 0.5 % (0.0-2.0); EOSINOPHILS # (AUTO) 0.1 /CMM (0.0-0.7); EOSINOPHILS % (AUTO) 0.4 % (0.0-6.0); HEMATOCRIT 21 % (33-45); LYMPHOCYTES # (AUTO) 2.3 /CMM (0.8-4.8); LYMPHOCYTES % (AUTO) 10.5 % (20.0-44.0); MEAN CORPUSCULAR HEMOGLOBIN 32 PG (26.0-33.0); MEAN CORPUSCULAR HGB CONC 33 g/dl (31.0-36.0); MEAN CORPUSCULAR VOLUME 96 fL (82-100); MONOCYTES # (AUTO) 5.9 /CMM (0.1-1.30); MONOCYTES % (AUTO) 27.3 % (2.0-12.0); NEUTROPHILS # (AUTO) 13.3 /CMM (1.8-8.9); NEUTROPHILS % (AUTO) 61.3 % (43.0-81.0); PLATELET COUNT (AUTO) 110 /CMM (150-450); RDW COEFFICIENT OF VARIATION 19.7 (11.5-15.0); RED BLOOD CELL COUNT(AUTO) 2.16 MIL/uL (4.0-5.2); WHITE BLOOD COUNT (AUTO) 21.8 K/uL (4.3-11.0)
[2017-01-27 05:21] LABS: CALCIUM, SERUM 6.6 mg/dL (8.5-10.1); CREATININE 3.8 mg/dL (0.6-1.3); POTASSIUM 5.5 mmol/L (3.5-5.1)
[2017-01-27] MEDS: MEROPENEM 500 MG in IV NS 0.9% 50 ML IV SCH (05:24)
[2017-01-27] MEDS: LACTULOSE 10 G/15 ML UDC (PYXIS) PO SCH ×2 (05:24→12:00)
[2017-01-27 05:30] LABS: HEMOGLOBIN 6.8 g/dL (11.5-14.8)
[2017-01-27 05:33] LABS: BAND % (MANUAL) 14 % (0.0-5.0); LYMPHOCYTES % (MANUAL) 32 % (16-48); MONOCYTES % (MANUAL) 13 % (0-11.0); NEUTROPHILS % (MANUAL) 41 (42-76)
[2017-01-27] MEDS: VASOPRESSIN INJ 50 UNIT in IV D5W 497.5 ML IV PRN (06:49)
[2017-01-27 07:28] LABS: INR 1.93 (0.87-1.13); PROTHROMBIN TIME 21.5 SECS (9.5-12.7)
--- NOTE | 2017-01-27 07:47 | NUR ---
ICU/RN INITIAL NOTES,AM RECEIVED REPORT FROM NIGHT NURSE. PT INTUBATED ETT 7.5, 24CM AT THE LIP. PT OBTUNDED, NON RESPONSIVE. PT ON TELE, JUNCTIONAL RHYTHM. GENERALIZED PITTING EDEMA WITH ANASARCA THROUGHOUT. POWERS INTACT WITH MINIMAL TO NO OUTPUT. PT IS MAXED OUT ON 4 VASOPRESSORS, LEVOPHED, VASOPRESSOR, DOPAMINE, NORSYNEPHRINE. BLOOD PRODUCTS TRANSFUSED THROUGHOUT VEHICLE MAINTENANCE TECHNICIAN, NEW LAB VALUES WILL BE RELAYED TO MD. NOSE AND MOUTH BLEEDING. BED IN LOW POSITION, SIDE RIALS UP. CALL LIGHT WITHIN REACH, UNABLE TO USE. ALL NEEDS WILL BE ATTENDED TO, WILL CONTINUE TO MONITOR AND ASSESS.
[2017-01-27] MEDS: MICAFUNGIN SODIUM 100 MG in IV NS 0.9% 100 ML IV SCH (08:40)
[2017-01-27] MEDS: PANTOPRAZOLE 40 MG VIAL IV SCH (08:40)
[2017-01-27] MEDS: HYDROCORTISONE SOD SUCCINATE 100 MG/2 ML VIAL IV SCH (08:46)
[2017-01-27] MEDS: CITRIC ACID/SODIUM CITRATE (BICITRA)15 ML UDC PO SCH (08:47)
[2017-01-27] MEDS: THIAMINE HCL 100 MG TABLET PO SCH (08:47)
[2017-01-27] MEDS: Z GUARD REMEDY 2 OZ OINT TP SCH (08:53)
[2017-01-27] MEDS: NYSTATIN TOP POWDER 15 GM BOTTLE TP SCH (08:53)
[2017-01-27] MEDS: NEOMY SULF/BACITRAC ZN/POLY 15 GM TUBE TP SCH (08:53)
--- NOTE | 2017-01-27 10:00 | NUR ---
ICU/RN: UNABLE TO TURN AND REPOSITION PT DUE TO CRITICAL CONDITION. WILL REEVALUATE
--- NOTE | 2017-01-27 11:30 | NUR ---
Bioethics meeting was held today which included, Dr. Ribera, EDDIE Jimenez, ICU STEVEN Bruce and ESPINOZA Sanchez, Dr. Ribera had a discussion with ICU fur liner, forestry engineer, and laundry pricing clerk. The consensus was that pt. has no quality of life, and is suffering and has a grave prognosis. It was decided that pt's code status will be changed to comfort measures at this time. Pt. has no family. Public Guardian, missing persons were called and no guardian or missing persons has been filed on pt.
--- NOTE | 2017-01-27 12:00 | NUR ---
ICU/RN: BIOETHICS MEETING BIOETHICS MEETING HELD WITH , ANIKET FLORES (FORM DESIGNER), EDUIN (HEAD ATHLETIC TRAINER/STRENGTH COACH), AND MYSELF. THOROUGH DISCUSSION REGARDING PLAN OF CARE DISCUSSED WITH MULTIDISCIPLINARY TEAM (POULTRY FARMER, HOSPITAL MEDICAL ASSISTANT, CONE MACHINE OPERATOR AND PRIMARY MD, DENTAL SPECIALIST) AND CAME TO A CONCLUSION THAT PT IS SUFFERING AND THE PROGNOSIS IS FUTILE; THEREFORE CODE STATUS CHANGED TO COMFORT CARE. PATIENT HAS NO FAMILY OR POWER OF MUSIC LIBRARY ASSISTANT.
--- NOTE | 2017-01-27 12:47 | NUR ---
ICU/RN: PER MD ORDERS PT GOAL OF CARE SWITCHED TO COMFORT CARE AND ALL VASOPRESSORS TURNED OFF. WILL CONTINUE TO KEEP COMFORTABLE AND MONITOR
[2017-01-27] MEDS: MORPHINE SULFATE INJ 4 MG/ML DISP.SYRIN IV PRN (14:23)
--- NOTE | 2017-01-27 14:23 | NUR ---
ICU/RN: ORDERS RECEIVED TO EXTUBATE PT, ALONG WITH COMFORT CARE. MORPHINE GIVEN PRIOR TO EXTUBATION.
[2017-01-27] MEDS ORDERED: MORPHINE SULFATE INJ 2 MG/ML DISP.SYRIN IV PRN (14:30)
--- NOTE | 2017-01-27 14:35 | NUR ---
ICU/RN: PATIENT PRONOUNCED BY ANIKET, CHARGE NURSE. NO SPONTANEOUS BREATHS NOTED, NO PALPABLE PULSES, ASYSTOLE ON MONITOR. WILL CALL [facility].
--- NOTE | 2017-01-27 14:40 | NUR ---
ICU/RN: [facility] CALLED, REFERRAL NUMBER [phone], SPOKE TO KELLY. 1450-PER KELLY, NOT A CANDIDATE FOR DONOR.
== END 2017-01-27 14:35 | disposition expired | DRG 870 ==
LOC: ER 14:47 → MEDSG1 17:32 → TELE1 01-20 04:42 → ICU 01-20 06:28
PROVIDERS: ADMIT Internal Medicine; ATTEND Nurse Practitioner Acute Care
PROC: 0W9G3ZX Drainage of Peritoneal Cavity, Percutaneous Approach, Diagnostic (ICD-10-PCS; 2017-01-08)
PROC: 5A1955Z Respiratory Ventilation, Greater than 96 Consecutive Hours (ICD-10-PCS; principal; 2017-01-20)
PROC: 30233K1 Transfusion of Nonautologous Frozen Plasma into Peripheral Vein, Percutaneous Approach (ICD-10-PCS; 2017-01-20)
PROC: 30233N1 Transfusion of Nonautologous Red Blood Cells into Peripheral Vein, Percutaneous Approach (ICD-10-PCS; 2017-01-20)
PROC: 0BH17EZ Insertion of Endotracheal Airway into Trachea, Via Natural or Artificial Opening (ICD-10-PCS; 2017-01-20)
PROC: 02HV33Z Insertion of Infusion Device into Superior Vena Cava, Percutaneous Approach (ICD-10-PCS; 2017-01-20)
PROC: 30233M1 Transfusion of Nonautologous Plasma Cryoprecipitate into Peripheral Vein, Percutaneous Approach (ICD-10-PCS; 2017-01-26)
PROC: 30233R1 Transfusion of Nonautologous Platelets into Peripheral Vein, Percutaneous Approach (ICD-10-PCS; 2017-01-26)
DX: A41.9 Sepsis, unspecified organism (principal); N17.0 Acute kidney failure with tubular necrosis; Z51.5 Encounter for palliative care; Z66 Do not resuscitate; J96.01 Acute respiratory failure with hypoxia; K76.7 Hepatorenal syndrome; D65 Disseminated intravascular coagulation [defibrination syndrome]; J69.0 Pneumonitis due to inhalation of food and vomit; E87.2 Acidosis; K72.90 Hepatic failure, unspecified without coma; D68.9 Coagulation defect, unspecified; I50.31 Acute diastolic (congestive) heart failure; R65.21 Severe sepsis with septic shock; K65.2 Spontaneous bacterial peritonitis; K92.2 Gastrointestinal hemorrhage, unspecified; E87.1 Hypo-osmolality and hyponatremia; E46 Unspecified protein-calorie malnutrition; K70.31 Alcoholic cirrhosis of liver with ascites; F03.90 Unspecified dementia, unspecified severity, without behavioral disturbance, psychotic disturbance, mood disturbance, and anxiety; F32.9 Major depressive disorder, single episode, unspecified; K58.9 Irritable bowel syndrome, unspecified; Z87.891 Personal history of nicotine dependence; M77.9 Enthesopathy, unspecified; M48.06 Spinal stenosis, lumbar region; M19.90 Unspecified osteoarthritis, unspecified site; K58.0 Irritable bowel syndrome with diarrhea; K44.9 Diaphragmatic hernia without obstruction or gangrene; I11.0 Hypertensive heart disease with heart failure; M06.9 Rheumatoid arthritis, unspecified; G89.29 Other chronic pain; F41.9 Anxiety disorder, unspecified; E86.9 Volume depletion, unspecified; E78.5 Hyperlipidemia, unspecified; E66.01 Morbid (severe) obesity due to excess calories; D64.9 Anemia, unspecified; D72.821 Monocytosis (symptomatic); B36.9 Superficial mycosis, unspecified
CPT/HCPCS: 31720; 36415; 36600; 71010-TC; 72128-TC; 76770-TC; 76942-TC; 80048-TC; 80053-TC; 80076-TC; 80202-TC; 81000-TC; 82140-TC; 82247-TC; 82248-TC; 82272-TC; 82570-TC; 82962-TC; 83605-TC; 83690-TC; 83735-TC; 83935-TC; 84100-TC; 84155-TC; 84300-TC; 85025-TC; 85027-TC; 85385-TC; 85396; 85610-TC; 85652-TC; 85730-TC; 86140-TC; 86431-TC; 86706; 86803; 86850-TC; 86921-TC; 87040-TC; 87070-TC; 87081-TC; 87086-TC; 87340; 89051-TC; 92611-TC; 93307-TC; 93970-TC; 94003-TC; 94799-TC; 97001-TC; 97110-TC; 97112-TC; 97530-TC; A4216; A4606; A6402; A6403; C1751; C9113; J0330; J0692; J0696; J0744; J1265; J1720; J2185; J2248; J2270; J2354; J2370; J2405; J3370; J3430; J3490; J7030; J7040; J7050; J7060; J7070; P9012; P9016-BL; P9017-BL; P9034-BL; P9047; Z7610